=== PATIENT | male | born 1955 | race Caucasian/White ===

== ENCOUNTER 2019-06-02 07:39 | Inpatient (IN) ==
[2019-06-02] MEDS ORDERED: SODIUM CHLORIDE 0.9% 500 ML IV STA (08:00)
[2019-06-02] MEDS ORDERED: CEFTAROLINE 600 MG in SODIUM CHLORIDE 0.9% 100 ML IV STA (08:00)
[2019-06-02 08:39] LABS: Basophils % 0.5 % (0.0-0.8); Eosinophils # 0.2 10*3/uL (0.0-0.87); Eosinophils % 1.9 % (0.00-10.9); Immature Granulocytes % 2.5 %; Immature Granulocytes Absolute 0.21 #; Lymphocytes # 0.5 10*3/uL (1.4-4.0); Lymphocytes % 6.1 % (21.2-54.2); Mean Corpuscular HGB Conc 32.4 GM/DL (32-36); Mean Corpuscular Volume 98.4 FL (87-102); Mean Platelet Volume 9.1 FL (9.6-12.0); Monocytes % 13.5 % (1.7-12.7); Neutrophils % 75.5 % (38.7-73.9); Platelet Count 214 T/CUMM (130-400); Red Blood Count 3.76 MC/CUMM (3.8-5.5); White Blood Count 8.4 T/CUMM (4-12)
[2019-06-02 08:48] LABS: Calcium 8.8 MG/DL (8.5-10.1); Osmolality,Calculated 265.5 MOS/KG (273-304)
[2019-06-02 11:06] LABS: Sedimentation Rate-Westergren 69 MM/HR (0-20)
[2019-06-02] MEDS ORDERED: ONDANSETRON 4 MG/2 ML VIAL IV PRN (11:14)
[2019-06-02] MEDS ORDERED: ACETAMINOPHEN 325 MG TABLET PO PRN (11:14)
[2019-06-02] MEDS ORDERED: PIPERACILLIN/TAZOBACTAM 3,375 MG in SODIUM CHLORIDE 0.9% 100 ML IV SCH (11:30)
[2019-06-02 12:32] LABS: Risk Ratio 3.23; Thyroid Stimulating Hormone 1.18 uIU/ml (0.358-3.74); VLDL CHOLESTEROL 18.8 MG/DL
[2019-06-02] MEDS ORDERED: MAGNESIUM SULF RIDER 4 GM in PREMIX 1 EACH IV PRN (12:47)
[2019-06-02] MEDS ORDERED: MAGNESIUM SULF RIDER 2 GM in PREMIX 1 EACH IV PRN (12:47)
[2019-06-02] MEDS ORDERED: LIDOCAINE 1% 20 ML VIAL ONE (13:38)
[2019-06-02] MEDS ORDERED: BUPIVACAINE MPF 0.25% 30 ML VIAL ONE (13:38)
[2019-06-02] MEDS ORDERED: PROPOFOL 200 MG/20 ML VIAL IV ONE (14:19)
[2019-06-02] MEDS ORDERED: fentaNYL 100 MCG/2 ML VIAL ONE (14:20)
[2019-06-02] MEDS ORDERED: SEVOFLURANE 1 UNIT/15 MINUTE INH ONE (14:20)
[2019-06-02] MEDS ORDERED: MIDAZOLAM 2 MG/2 ML VIAL ONE (14:20)
[2019-06-02] MEDS ORDERED: ENOXAPARIN 40 MG/0.4 ML SYRINGE SUBCUT SCH (15:00)
[2019-06-02 16:43] LABS: Hematocrit 35.4 VOL% (42.0-52.0); Hemoglobin 11.3 GM/DL (14.0-18.0)
[2019-06-02] MEDS: SODIUM CHLORIDE 0.9% 1,000 ML IV SCH (17:25)
[2019-06-02] MEDS: CIPROFLOXACIN INJ 400 MG in PREMIX 1 EACH IV SCH (17:26)
[2019-06-02] MEDS: GABAPENTIN 300 MG CAPSULE PO SCH ×2 (17:54→22:21)
[2019-06-02] MEDS: VANCOMYCIN INJ 1,250 MG in SODIUM CHLORIDE 0.9% 250 ML IV SCH (17:54)
[2019-06-02 21:26] LABS: Apearance,Urine CLEAR (Clear); Bilirubin,Urine Negative (Negative); Blood, Urine Small mg/dL (Negative); Glucose,Urine (UA) Negative (Negative); Ketones,Urine Negative (Negative); Nitrite,Urine Negative (Negative); Protein,Urine Negative; RBC,Urine 1 /HPF (0-4); Urine Color Yellow (Yellow); Urine Specific Gravity 1.008 (1.001-1.035); WBC,Urine 1 /HPF (0-6)
[2019-06-02] MEDS: KETOROLAC 30 MG/1 ML VIAL IV PRN (22:22)
[2019-06-03] MEDS: VANCOMYCIN INJ 1,250 MG in SODIUM CHLORIDE 0.9% 250 ML IV SCH ×2 (04:11→15:26)
[2019-06-03] MEDS: SODIUM CHLORIDE 0.9% 1,000 ML IV SCH ×2 (04:26→12:23)
[2019-06-03 04:45] LABS: Basophils % 0.3 % (0.0-0.8); Eosinophils # 0.2 10*3/uL (0.0-0.87); Eosinophils % 4.7 % (0.00-10.9); Hematocrit 29.5 VOL% (42.0-52.0); Hemoglobin 9.3 GM/DL (14.0-18.0); Immature Granulocytes % 1.4 %; Immature Granulocytes Absolute 0.05 #; Lymphocytes # 0.4 10*3/uL (1.4-4.0); Lymphocytes % 10.5 % (21.2-54.2); Mean Corpuscular HGB Conc 31.5 GM/DL (32-36); Mean Platelet Volume 9.4 FL (9.6-12.0); Monocytes % 12.2 % (1.7-12.7); Neutrophils % 70.9 % (38.7-73.9); Platelet Count 120 T/CUMM (130-400); Red Blood Count 2.95 MC/CUMM (3.8-5.5); White Blood Count 3.6 T/CUMM (4-12)
[2019-06-03 05:04] LABS: Calcium 8.4 MG/DL (8.5-10.1); Osmolality,Calculated 276.4 MOS/KG (273-304)
[2019-06-03] MEDS: CIPROFLOXACIN INJ 400 MG in PREMIX 1 EACH IV SCH ×2 (05:40→17:16)
[2019-06-03] MEDS: GABAPENTIN 300 MG CAPSULE PO SCH ×3 (08:56→20:17)
[2019-06-03] MEDS: PANTOPRAZOLE 40 MG TABLET PO SCH (08:56)
[2019-06-03] MEDS: KETOROLAC 30 MG/1 ML VIAL IV PRN ×2 (12:20→18:12)
[2019-06-03] MEDS: traMADol 50 MG TABLET PO PRN (19:45)
[2019-06-04] MEDS: KETOROLAC 30 MG/1 ML VIAL IV PRN ×4 (00:02→21:18)
[2019-06-04] MEDS: SODIUM CHLORIDE 0.9% 1,000 ML IV SCH ×2 (00:04→13:53)
[2019-06-04] MEDS: traMADol 50 MG TABLET PO PRN ×4 (01:04→21:11)
[2019-06-04] MEDS: VANCOMYCIN INJ 1,250 MG in SODIUM CHLORIDE 0.9% 250 ML IV SCH ×2 (03:12→15:06)
[2019-06-04 04:24] LABS: Basophils % 0.4 % (0.0-0.8); Eosinophils # 0.1 10*3/uL (0.0-0.87); Eosinophils % 5.6 % (0.00-10.9); Hemoglobin 9.1 GM/DL (14.0-18.0); Immature Granulocytes % 0.8 %; Immature Granulocytes Absolute 0.02 #; Lymphocytes # 0.3 10*3/uL (1.4-4.0); Lymphocytes % 12.3 % (21.2-54.2); Mean Corpuscular HGB Conc 32.5 GM/DL (32-36); Mean Corpuscular Volume 100.4 FL (87-102); Mean Platelet Volume 9.4 FL (9.6-12.0); Monocytes % 12.3 % (1.7-12.7); Neutrophils % 68.6 % (38.7-73.9); Platelet Count 105 T/CUMM (130-400); Red Blood Count 2.79 MC/CUMM (3.8-5.5); White Blood Count 2.5 T/CUMM (4-12)
[2019-06-04 04:45] LABS: Calcium 8.4 MG/DL (8.5-10.1); Osmolality,Calculated 280.1 MOS/KG (273-304)
[2019-06-04] MEDS: CIPROFLOXACIN INJ 400 MG in PREMIX 1 EACH IV SCH ×2 (05:19→16:48)
[2019-06-04] MEDS: PANTOPRAZOLE 40 MG TABLET PO SCH (08:55)
[2019-06-04] MEDS: GABAPENTIN 300 MG CAPSULE PO SCH ×3 (08:55→21:12)
[2019-06-05] MEDS: SODIUM CHLORIDE 0.9% 1,000 ML IV SCH ×2 (01:09→12:17)
[2019-06-05] MEDS: KETOROLAC 30 MG/1 ML VIAL IV PRN (03:29)
[2019-06-05] MEDS: VANCOMYCIN INJ 1,250 MG in SODIUM CHLORIDE 0.9% 250 ML IV SCH (03:29)
[2019-06-05 04:50] LABS: Basophils % 0.3 % (0.0-0.8); Eosinophils # 0.1 10*3/uL (0.0-0.87); Eosinophils % 2.9 % (0.00-10.9); Hematocrit 29.9 VOL% (42.0-52.0); Hemoglobin 9.3 GM/DL (14.0-18.0); Immature Granulocytes % 1.3 %; Immature Granulocytes Absolute 0.04 #; Lymphocytes # 0.3 10*3/uL (1.4-4.0); Lymphocytes % 8.9 % (21.2-54.2); Mean Corpuscular HGB Conc 31.1 GM/DL (32-36); Mean Corpuscular Volume 103.1 FL (87-102); Mean Platelet Volume 9.6 FL (9.6-12.0); Neutrophils % 79.6 % (38.7-73.9); Platelet Count 112 T/CUMM (130-400); Red Cell Distribution Width 13.2 % (9.3-17.3); White Blood Count 3.1 T/CUMM (4-12)
[2019-06-05 05:19] LABS: Calcium 8.4 MG/DL (8.5-10.1); Osmolality,Calculated 278.3 MOS/KG (273-304)
[2019-06-05] MEDS: CIPROFLOXACIN INJ 400 MG in PREMIX 1 EACH IV SCH (05:37)
[2019-06-05] MEDS ORDERED: LEVOFLOXACIN 750 MG TABLET PO SCH (07:00)
[2019-06-05] MEDS: PANTOPRAZOLE 40 MG TABLET PO SCH (08:27)
[2019-06-05] MEDS: GABAPENTIN 300 MG CAPSULE PO SCH (08:27)
[2019-06-05 11:21] VITALS: BP 115/62
== END 2019-06-05 14:55 | disposition home health service (06) | DRG 305 ==
LOC: N.ED 07:39 → SUATTDRO 11:15 → N.EDINP 11:15 → N.3E 12:55
PROVIDERS: ADMIT Emergency Medicine; ATTEND Family Medicine

== ENCOUNTER 2019-06-15 14:30 | Inpatient (IN) ==
[~2019-06-15 14:30] MED LIST: ACETAMINOPHEN 325 MG TABLET PO PRN; ALBUTEROL/IPRATROPIUM 3 ML NEB RESP TX PRN; BISACODYL 5 MG TABLET PO PRN; ONDANSETRON 4 MG/2 ML VIAL IV PRN
[2019-06-16] MEDS: PIPERACILLIN/TAZOBACTAM 3,375 MG in SODIUM CHLORIDE 0.9% 100 ML IV SCH ×4 (10:15→21:16)
[2019-06-16] MEDS: LACTATED RINGERS 1,000 ML IV SCH ×3 (10:15→21:50)
[2019-06-16] MEDS: PANTOPRAZOLE 40 MG TABLET PO SCH ×2 (10:16→10:54)
[2019-06-16] MEDS: traMADol 50 MG TABLET PO SCH ×2 (14:01→21:15)
[2019-06-16] MEDS: GABAPENTIN 300 MG CAPSULE PO SCH ×2 (14:01→21:15)
[2019-06-16] MEDS: VANCOMYCIN INJ 1,500 MG in SODIUM CHLORIDE 0.9% 500 ML IV SCH (15:51)
[2019-06-17] MEDS: VANCOMYCIN INJ 1,500 MG in SODIUM CHLORIDE 0.9% 500 ML IV SCH ×2 (03:47→14:50)
[2019-06-17] MEDS: traMADol 50 MG TABLET PO SCH ×3 (05:56→21:44)
[2019-06-17] MEDS: METHADONE PO SCH (05:56)
[2019-06-17] MEDS: PIPERACILLIN/TAZOBACTAM 3,375 MG in SODIUM CHLORIDE 0.9% 100 ML IV SCH ×2 (09:04→17:14)
[2019-06-17] MEDS: SODIUM HYPOCHLORITE 0.25% IRRIG 473 ML BOTTLE TOP SCH (09:04)
[2019-06-17] MEDS: CHLORHEXIDINE 4% SOLN 118 ML BOTTLE TOP SCH (09:05)
[2019-06-17] MEDS: GABAPENTIN 300 MG CAPSULE PO SCH ×3 (09:07→21:44)
[2019-06-17] MEDS: PANTOPRAZOLE 40 MG TABLET PO SCH (09:07)
[2019-06-17] MEDS: LACTATED RINGERS 1,000 ML IV SCH (21:21)
[2019-06-18] MEDS: PIPERACILLIN/TAZOBACTAM 3,375 MG in SODIUM CHLORIDE 0.9% 100 ML IV SCH ×3 (01:33→19:05)
[2019-06-18] MEDS: METHADONE PO SCH (05:17)
[2019-06-18] MEDS: traMADol 50 MG TABLET PO SCH ×3 (05:17→22:26)
[2019-06-18] MEDS: VANCOMYCIN INJ 1,500 MG in SODIUM CHLORIDE 0.9% 500 ML IV SCH ×2 (06:08→17:13)
[2019-06-18] MEDS: SODIUM HYPOCHLORITE 0.25% IRRIG 473 ML BOTTLE TOP SCH (09:36)
[2019-06-18] MEDS: PANTOPRAZOLE 40 MG TABLET PO SCH (09:36)
[2019-06-18] MEDS: GABAPENTIN 300 MG CAPSULE PO SCH ×3 (09:36→22:26)
[2019-06-18] MEDS: CHLORHEXIDINE 4% SOLN 118 ML BOTTLE TOP SCH (09:37)
[2019-06-19] MEDS: PIPERACILLIN/TAZOBACTAM 3,375 MG in SODIUM CHLORIDE 0.9% 100 ML IV SCH ×2 (01:52→11:22)
[2019-06-19] MEDS: traMADol 50 MG TABLET PO SCH ×2 (05:19→14:13)
[2019-06-19] MEDS: METHADONE PO SCH (05:19)
[2019-06-19] MEDS: VANCOMYCIN INJ 1,500 MG in SODIUM CHLORIDE 0.9% 500 ML IV SCH (06:50)
[2019-06-19] MEDS: PANTOPRAZOLE 40 MG TABLET PO SCH (09:47)
[2019-06-19] MEDS: GABAPENTIN 300 MG CAPSULE PO SCH ×2 (09:47→15:06)
[2019-06-19] MEDS: SODIUM HYPOCHLORITE 0.25% IRRIG 473 ML BOTTLE TOP SCH (10:55)
[2019-06-19] MEDS: CHLORHEXIDINE 4% SOLN 118 ML BOTTLE TOP SCH (10:55)
[2019-06-19 11:32] VITALS: BP 115/82
== END 2019-06-19 15:39 | disposition home health service (06) | DRG 383 ==
LOC: N.EDINP 06-16 08:38 → N.3E 06-16 09:15
PROVIDERS: ADMIT Surgery; ATTEND Surgery

== ENCOUNTER 2019-06-26 15:26 | Inpatient (IN) ==
[2019-06-26 17:17] LABS: Basophils % 0.2 % (0.0-0.8); Eosinophils # 0.1 10*3/uL (0.0-0.87); Eosinophils % 1.4 % (0.00-10.9); Hematocrit 30.7 VOL% (42.0-52.0); Hemoglobin 9.6 GM/DL (14.0-18.0); Immature Granulocytes % 0.8 %; Immature Granulocytes Absolute 0.04 #; Lymphocytes # 0.2 10*3/uL (1.4-4.0); Lymphocytes % 3.9 % (21.2-54.2); Mean Corpuscular HGB Conc 31.3 GM/DL (32-36); Mean Corpuscular Volume 99.7 FL (87-102); Mean Platelet Volume 10.6 FL (9.6-12.0); Neutrophils % 84.7 % (38.7-73.9); Platelet Count 124 T/CUMM (130-400); Red Blood Count 3.08 MC/CUMM (3.8-5.5); Red Cell Distribution Width 13.8 % (9.3-17.3); White Blood Count 5.1 T/CUMM (4-12)
[2019-06-26 17:24] LABS: Apearance,Urine CLEAR (Clear); Bilirubin,Urine Negative (Negative); Blood, Urine Negative (Negative); Glucose,Urine (UA) Negative (Negative); Ketones,Urine Negative (Negative); Nitrite,Urine Negative (Negative); Protein,Urine Negative; Squamous Epithelial Cell,Urine Occasional /HPF (0-10); Urine Color Straw (Yellow); Urine Specific Gravity 1.003 (1.001-1.035); Urine Urobilinogen < 2.0 EU/DL (0.2-1.0)
[2019-06-26 17:27] LABS: Albumin 2.4 G/DL (3.4-5.0); Bilirubin,Total 0.6 MG/DL (0.2-1.0); Calcium 8.4 MG/DL (8.5-10.1); Osmolality,Calculated 276.4 MOS/KG (273-304); Thyroid Stimulating Hormone 2.99 uIU/ml (0.358-3.74); Total Protein 7.3 G/DL (6.4-8.3)
[2019-06-26 17:29] LABS: Barbiturates Screen,Urine Negative (Negative); Benzodiazepines Screen,Urine Negative (Negative); Cannabinoid Screen,Urine Negative (Negative); INR 1.1; Opiate Screen,Urine Negative (Negative); PT Patient Result 11.7 SECS; Phencyclidine Screen,Urine Negative (Negative)
[2019-06-26] MEDS ORDERED: MAGNESIUM SULF RIDER 2 GM in PREMIX 1 EACH IV STA (17:33)
[2019-06-26] MEDS ORDERED: MAGNESIUM SULF RIDER 50 ML IV ONE (17:33)
[2019-06-26 17:39] LABS: Eosinophils 1 % (0-10); Lymphocytes 4 % (20-55); Platelet Estimate Adequate; Segmented Neutrophils 86 % (50-85); Total Cells Counted 100
[2019-06-26 17:40] LABS: Hypochromasia Slight; Polychromasia Few
[2019-06-26] MEDS ORDERED: DOCUSATE SODIUM 100 MG CAPSULE PO PRN (17:44)
[2019-06-26] MEDS ORDERED: ONDANSETRON 4 MG/2 ML VIAL IV PRN (17:44)
[2019-06-26] MEDS ORDERED: POTASSIUM CHLORIDE 20 MEQ TABLET PO ONE (18:48)
[2019-06-26] MEDS: METOPROLOL TARTRATE 25 MG TABLET PO SCH ×2 (18:55→21:28)
[2019-06-26] MEDS: SODIUM CHLORIDE 0.9% 1,000 ML IV SCH (18:56)
[2019-06-26] MEDS: KETOROLAC 15 MG/1 ML VIAL IV PRN (21:14)
[2019-06-26] MEDS: ENOXAPARIN 40 MG/0.4 ML SYRINGE SUBCUT SCH (21:28)
[2019-06-27] MEDS ORDERED: PNEUMOCOCCAL VACCINE (23 VALENT) 0.5 ML VIAL IM ONE (00:15)
[2019-06-27 00:46] LABS: Basophils % 0.4 % (0.0-0.8); Eosinophils # 0.1 10*3/uL (0.0-0.87); Hematocrit 33.4 VOL% (42.0-52.0); Hemoglobin 10.3 GM/DL (14.0-18.0); Immature Granulocytes % 1.3 %; Immature Granulocytes Absolute 0.06 #; Lymphocytes # 0.3 10*3/uL (1.4-4.0); Lymphocytes % 6.9 % (21.2-54.2); Mean Corpuscular HGB Conc 30.8 GM/DL (32-36); Mean Corpuscular Volume 100.3 FL (87-102); Mean Platelet Volume 9.4 FL (9.6-12.0); Monocytes % 9.4 % (1.7-12.7); Platelet Count 162 T/CUMM (130-400); Red Blood Count 3.33 MC/CUMM (3.8-5.5); Red Cell Distribution Width 13.7 % (9.3-17.3); White Blood Count 4.5 T/CUMM (4-12)
[2019-06-27 01:20] LABS: Albumin 2.5 G/DL (3.4-5.0); Bilirubin,Total 0.6 MG/DL (0.2-1.0); Calcium 8.2 MG/DL (8.5-10.1); Osmolality,Calculated 277.3 MOS/KG (273-304); Risk Ratio 3.15; Total Protein 7.6 G/DL (6.4-8.3)
[2019-06-27] MEDS: KETOROLAC 15 MG/1 ML VIAL IV PRN ×4 (04:06→23:56)
[2019-06-27] MEDS: METOPROLOL TARTRATE 25 MG TABLET PO SCH ×2 (09:09→22:45)
[2019-06-27] MEDS: PANTOPRAZOLE 40 MG TABLET PO SCH (09:09)
[2019-06-27] MEDS ORDERED: ASPIRIN 325 MG TABLET PO ONE (10:03)
[2019-06-27] MEDS ORDERED: POTASSIUM CHLORIDE RIDER 10 MEQ in PREMIX 1 EACH IV PRN (10:03)
[2019-06-27] MEDS ORDERED: diphenhydrAMINE CAP 25 MG CAPSULE PO ONE (10:03)
[2019-06-27] MEDS ORDERED: DIAZEPAM 5 MG TABLET PO ONE (10:03)
[2019-06-27 10:35] LABS: % Iron Saturation 14.4 % (18-50); Ferritin 42.6 ng/ml (26-388)
[2019-06-27] MEDS: GABAPENTIN 300 MG CAPSULE PO SCH ×2 (14:42→22:44)
[2019-06-27] MEDS: SODIUM CHLORIDE 0.9% 1,000 ML IV SCH (14:43)
[2019-06-27] MEDS: ENOXAPARIN 40 MG/0.4 ML SYRINGE SUBCUT SCH (22:45)
[2019-06-28 05:57] LABS: Basophils % 0.3 % (0.0-0.8); Eosinophils # 0.2 10*3/uL (0.0-0.87); Eosinophils % 5.3 % (0.00-10.9); Hematocrit 32.4 VOL% (42.0-52.0); Hemoglobin 10.1 GM/DL (14.0-18.0); Immature Granulocytes % 0.7 %; Immature Granulocytes Absolute 0.02 #; Lymphocytes # 0.3 10*3/uL (1.4-4.0); Lymphocytes % 11.3 % (21.2-54.2); Mean Corpuscular HGB Conc 31.2 GM/DL (32-36); Mean Corpuscular Volume 100.3 FL (87-102); Mean Platelet Volume 10.1 FL (9.6-12.0); Monocytes % 14.6 % (1.7-12.7); Neutrophils % 67.8 % (38.7-73.9); Red Blood Count 3.23 MC/CUMM (3.8-5.5); Red Cell Distribution Width 13.9 % (9.3-17.3)
[2019-06-28 05:58] LABS: Platelet Count 116 T/CUMM (130-400)
[2019-06-28 06:02] LABS: Calcium 8.5 MG/DL (8.5-10.1); Osmolality,Calculated 276.3 MOS/KG (273-304)
[2019-06-28] MEDS ORDERED: METHADONE PO SCH (07:30)
[2019-06-28] MEDS ORDERED: DIAZEPAM 5 MG TABLET PO ONE (08:00)
[2019-06-28] MEDS ORDERED: diphenhydrAMINE CAP 25 MG CAPSULE PO ONE (08:00)
[2019-06-28] MEDS ORDERED: ASPIRIN 325 MG TABLET PO ONE (09:00)
[2019-06-28] MEDS: SODIUM CHLORIDE 0.9% 1,000 ML IV SCH (09:49)
[2019-06-28] MEDS: VANCOMYCIN INJ 1,500 MG in SODIUM CHLORIDE 0.9% 500 ML IV SCH ×2 (09:51→21:00)
[2019-06-28] MEDS: KETOROLAC 15 MG/1 ML VIAL IV PRN ×2 (09:53→18:33)
[2019-06-28] MEDS: METOPROLOL TARTRATE 25 MG TABLET PO SCH ×2 (09:54→20:41)
[2019-06-28] MEDS: PANTOPRAZOLE 40 MG TABLET PO SCH (09:54)
[2019-06-28] MEDS: GABAPENTIN 300 MG CAPSULE PO SCH ×3 (09:54→20:41)
[2019-06-28] MEDS: ASPIRIN EC 81 MG TABLET PO SCH (10:59)
[2019-06-28] MEDS: ASCORBIC ACID 500 MG TABLET PO SCH ×2 (10:59→20:41)
[2019-06-28] MEDS: METHADONE 10 MG TABLET PO SCH (14:22)
[2019-06-28] MEDS: SKIN HEALING OINT (AQUAPHOR) 50 GM TUBE TOP PRN (15:03)
[2019-06-28] MEDS: ENOXAPARIN 40 MG/0.4 ML SYRINGE SUBCUT SCH (20:40)
[2019-06-29] MEDS: KETOROLAC 15 MG/1 ML VIAL IV PRN ×3 (00:22→12:15)
[2019-06-29 06:10] LABS: Basophils % 0.3 % (0.0-0.8); Eosinophils # 0.1 10*3/uL (0.0-0.87); Eosinophils % 3.2 % (0.00-10.9); Hematocrit 33.1 VOL% (42.0-52.0); Hemoglobin 10.4 GM/DL (14.0-18.0); Immature Granulocytes % 0.5 %; Immature Granulocytes Absolute 0.02 #; Lymphocytes # 0.4 10*3/uL (1.4-4.0); Lymphocytes % 9.3 % (21.2-54.2); Mean Corpuscular HGB Conc 31.4 GM/DL (32-36); Mean Corpuscular Volume 99.1 FL (87-102); Mean Platelet Volume 9.6 FL (9.6-12.0); Monocytes % 11.7 % (1.7-12.7); Platelet Count 111 T/CUMM (130-400); Red Blood Count 3.34 MC/CUMM (3.8-5.5); Red Cell Distribution Width 13.8 % (9.3-17.3); White Blood Count 3.8 T/CUMM (4-12)
[2019-06-29 06:23] LABS: Calcium 8.7 MG/DL (8.5-10.1); Osmolality,Calculated 273.5 MOS/KG (273-304)
[2019-06-29] MEDS ORDERED: LACTATED RINGERS 1,000 ML IV SCH (08:00)
[2019-06-29] MEDS ORDERED: MAGNESIUM SULF RIDER 4 GM in PREMIX 1 EACH IV PRN (08:29)
[2019-06-29] MEDS ORDERED: diphenhydrAMINE CAP 25 MG CAPSULE PO ONE ×2 (08:37→15:00)
[2019-06-29] MEDS ORDERED: DIAZEPAM 5 MG TABLET PO ONE ×2 (08:37→15:00)
[2019-06-29] MEDS: CHLORHEXIDINE 4% SOLN 118 ML BOTTLE TOP SCH (09:00)
[2019-06-29] MEDS ORDERED: SODIUM HYPOCHLORITE 0.25% IRRIG 473 ML BOTTLE TOP SCH (09:00)
[2019-06-29] MEDS: ASPIRIN EC 81 MG TABLET PO SCH (09:09)
[2019-06-29] MEDS: METOPROLOL TARTRATE 25 MG TABLET PO SCH ×2 (09:09→22:00)
[2019-06-29] MEDS: SKIN HEALING OINT (AQUAPHOR) 50 GM TUBE TOP PRN (09:11)
[2019-06-29] MEDS: SODIUM HYPOCHLORITE 0.25% IRRIG 473 ML BOTTLE TOP SCH (09:11)
[2019-06-29] MEDS: VANCOMYCIN INJ 1,500 MG in SODIUM CHLORIDE 0.9% 500 ML IV SCH (10:18)
[2019-06-29] MEDS ORDERED: LIDOCAINE 1% 20 ML VIAL ONE (14:40)
[2019-06-29] MEDS ORDERED: HEPARIN/NACL 0.9% 2 UNITS/ML 1,000 ML IV ONE (14:40)
[2019-06-29] MEDS ORDERED: MIDAZOLAM 2 MG/2 ML VIAL ONE (15:11)
[2019-06-29] MEDS ORDERED: fentaNYL 100 MCG/2 ML VIAL ONE (15:11)
[2019-06-29] MEDS ORDERED: SODIUM BICARBONATE 2.4 MEQ/5 ML VIAL ONE (15:12)
[2019-06-29] MEDS: ASCORBIC ACID 500 MG TABLET PO SCH ×2 (15:22→22:00)
[2019-06-29] MEDS: GABAPENTIN 300 MG CAPSULE PO SCH ×3 (15:22→22:00)
[2019-06-29] MEDS: METHADONE 10 MG TABLET PO SCH (15:22)
[2019-06-29] MEDS: PANTOPRAZOLE 40 MG TABLET PO SCH (15:23)
[2019-06-29] MEDS ORDERED: diphenhydrAMINE 50 MG/1 ML VIAL ONE (15:29)
[2019-06-29] MEDS ORDERED: METHADONE 10 MG TABLET PO SCH ×2 (16:21→17:00)
[2019-06-29] MEDS: SODIUM CHLORIDE 0.9% 1,000 ML IV SCH (16:33)
[2019-06-29 18:27] LABS: Calcium 8.4 MG/DL (8.5-10.1); Osmolality,Calculated 274.4 MOS/KG (273-304)
[2019-06-29] MEDS ORDERED: MAGNESIUM SULF RIDER 2 GM in PREMIX 1 EACH IV ONE (19:54)
[2019-06-29] MEDS: POTASSIUM CHLORIDE RIDER 10 MEQ in PREMIX 1 EACH IV PRN ×2 (20:35→22:25)
[2019-06-29] MEDS: ENOXAPARIN 40 MG/0.4 ML SYRINGE SUBCUT SCH (22:00)
[2019-06-29] MEDS: POTASSIUM CHLORIDE RIDER 10 MEQ in PREMIX 1 EACH IV SCH (23:55)
[2019-06-30] MEDS: POTASSIUM CHLORIDE RIDER 10 MEQ in PREMIX 1 EACH IV SCH (01:50)
[2019-06-30] MEDS: VANCOMYCIN INJ 1,500 MG in SODIUM CHLORIDE 0.9% 500 ML IV SCH ×2 (01:52→12:28)
[2019-06-30] MEDS: SODIUM CHLORIDE 0.9% 1,000 ML IV SCH ×2 (04:11→23:35)
[2019-06-30 06:39] LABS: Basophils % 0.4 % (0.0-0.8); Eosinophils % 0.6 % (0.00-10.9); Hematocrit 32.4 VOL% (42.0-52.0); Hemoglobin 10.7 GM/DL (14.0-18.0); Immature Granulocytes % 1.2 %; Immature Granulocytes Absolute 0.06 #; Lymphocytes # 0.4 10*3/uL (1.4-4.0); Lymphocytes % 7.9 % (21.2-54.2); Mean Corpuscular Volume 94.5 FL (87-102); Mean Platelet Volume 11.3 FL (9.6-12.0); Neutrophils % 76.9 % (38.7-73.9); Platelet Count 96 T/CUMM (130-400); Red Blood Count 3.43 MC/CUMM (3.8-5.5); Red Cell Distribution Width 13.6 % (9.3-17.3); White Blood Count 5.1 T/CUMM (4-12)
[2019-06-30 06:45] LABS: Calcium 8.3 MG/DL (8.5-10.1); Osmolality,Calculated 272.5 MOS/KG (273-304)
[2019-06-30] MEDS ORDERED: POTASSIUM CHLORIDE 20 MEQ TABLET PO ONE (07:11)
[2019-06-30 07:12] LABS: Hypochromasia 1+; Platelet Estimate Decreased
[2019-06-30] MEDS ORDERED: MAGNESIUM SULF RIDER 2 GM in PREMIX 1 EACH IV ONE ×2 (07:14→20:19)
[2019-06-30] MEDS: METOPROLOL TARTRATE 25 MG TABLET PO SCH (08:30)
[2019-06-30] MEDS: GABAPENTIN 300 MG CAPSULE PO SCH ×3 (08:30→20:46)
[2019-06-30] MEDS: ASCORBIC ACID 500 MG TABLET PO SCH ×2 (08:30→20:46)
[2019-06-30] MEDS: ASPIRIN EC 81 MG TABLET PO SCH (08:30)
[2019-06-30] MEDS: PANTOPRAZOLE 40 MG TABLET PO SCH (08:31)
[2019-06-30] MEDS: KETOROLAC 15 MG/1 ML VIAL IV PRN ×2 (09:49→18:21)
[2019-06-30] MEDS: CHLORHEXIDINE 4% SOLN 118 ML BOTTLE TOP SCH (09:50)
[2019-06-30] MEDS: SODIUM HYPOCHLORITE 0.25% IRRIG 473 ML BOTTLE TOP SCH (09:50)
[2019-06-30] MEDS: fentaNYL 25 MCG/HR PATCH TRANSDERM SCH (14:26)
[2019-06-30] MEDS: ceFAZolin 1,000 MG in SYRINGE 1 EACH IV SCH ×2 (14:29→22:54)
[2019-06-30] MEDS ORDERED: cloNIDine 0.3 MG/24 HR PATCH TRANSDERM SCH (14:30)
[2019-06-30] MEDS ORDERED: METHADONE 10 MG/1 ML PO SCH (17:00)
[2019-06-30] MEDS: ENOXAPARIN 40 MG/0.4 ML SYRINGE SUBCUT SCH (20:45)
[2019-06-30] MEDS ORDERED: METHADONE 10 MG TABLET PO SCH (21:00)
[2019-06-30] MEDS ORDERED: AMIODARONE INJ 150 MG in DEXTROSE 5% 100 ML IV ONE (22:39)
[2019-07-01] MEDS: KETOROLAC 15 MG/1 ML VIAL IV PRN ×4 (00:04→19:20)
[2019-07-01 05:06] LABS: Basophils % 0.4 % (0.0-0.8); Eosinophils # 0.2 10*3/uL (0.0-0.87); Eosinophils % 6.4 % (0.00-10.9); Hematocrit 32.7 VOL% (42.0-52.0); Hemoglobin 10.3 GM/DL (14.0-18.0); Immature Granulocytes % 0.7 %; Immature Granulocytes Absolute 0.02 #; Lymphocytes # 0.4 10*3/uL (1.4-4.0); Lymphocytes % 12.5 % (21.2-54.2); Mean Corpuscular HGB Conc 31.5 GM/DL (32-36); Mean Corpuscular Volume 97.6 FL (87-102); Mean Platelet Volume 9.9 FL (9.6-12.0); Platelet Count 119 T/CUMM (130-400); Red Blood Count 3.35 MC/CUMM (3.8-5.5); Red Cell Distribution Width 13.8 % (9.3-17.3); White Blood Count 2.8 T/CUMM (4-12)
[2019-07-01 05:42] LABS: Calcium 8.5 MG/DL (8.5-10.1); Osmolality,Calculated 280.3 MOS/KG (273-304)
[2019-07-01] MEDS: ceFAZolin 1,000 MG in SYRINGE 1 EACH IV SCH ×3 (05:56→22:43)
[2019-07-01] MEDS: POTASSIUM CHLORIDE RIDER 10 MEQ in PREMIX 1 EACH IV PRN (05:57)
[2019-07-01 06:26] LABS: Anisocytosis 1+; Band Neutrophils 1 % (0-10); Eosinophils 6 % (0-10); Lymphocytes 12 % (20-55); Platelet Estimate Adequate; Segmented Neutrophils 66 % (50-85); Total Cells Counted 100
[2019-07-01] MEDS: METHADONE 10 MG TABLET PO SCH ×2 (10:07→20:40)
[2019-07-01] MEDS: MORPHINE ER 15 MG TABLET PO SCH ×2 (10:08→20:40)
[2019-07-01] MEDS: ASCORBIC ACID 500 MG TABLET PO SCH ×2 (10:09→20:40)
[2019-07-01] MEDS: POTASSIUM CHLORIDE 20 MEQ TABLET PO PRN ×2 (10:09→15:10)
[2019-07-01] MEDS: PANTOPRAZOLE 40 MG TABLET PO SCH (10:09)
[2019-07-01] MEDS: ASPIRIN EC 81 MG TABLET PO SCH (10:09)
[2019-07-01] MEDS: GABAPENTIN 300 MG CAPSULE PO SCH ×3 (10:09→20:40)
[2019-07-01] MEDS: POTASSIUM CHLORIDE 20 MEQ TABLET PO SCH ×2 (13:03→20:41)
[2019-07-01] MEDS: MAGNESIUM CHLORIDE 64 MG TABLET PO SCH ×2 (13:03→20:40)
[2019-07-01] MEDS: SODIUM HYPOCHLORITE 0.25% IRRIG 473 ML BOTTLE TOP SCH (16:32)
[2019-07-01] MEDS: CHLORHEXIDINE 4% SOLN 118 ML BOTTLE TOP SCH (16:33)
[2019-07-01] MEDS: ENOXAPARIN 40 MG/0.4 ML SYRINGE SUBCUT SCH (20:41)
[2019-07-01] MEDS: SODIUM CHLORIDE 0.9% 1,000 ML IV SCH (22:47)
[2019-07-02] MEDS: KETOROLAC 15 MG/1 ML VIAL IV PRN ×4 (02:48→23:54)
[2019-07-02] MEDS: SODIUM CHLORIDE 0.9% 1,000 ML IV SCH ×2 (05:15→19:20)
[2019-07-02 05:34] LABS: Basophils % 0.8 % (0.0-0.8); Eosinophils # 0.1 10*3/uL (0.0-0.87); Eosinophils % 5.3 % (0.00-10.9); Hematocrit 30.1 VOL% (42.0-52.0); Hemoglobin 9.5 GM/DL (14.0-18.0); Immature Granulocytes % 0.4 %; Immature Granulocytes Absolute 0.01 #; Lymphocytes # 0.2 10*3/uL (1.4-4.0); Mean Corpuscular HGB Conc 31.6 GM/DL (32-36); Mean Platelet Volume 10.5 FL (9.6-12.0); Monocytes % 14.8 % (1.7-12.7); Neutrophils % 70.7 % (38.7-73.9); Platelet Count 98 T/CUMM (130-400); Red Blood Count 3.07 MC/CUMM (3.8-5.5); Red Cell Distribution Width 13.6 % (9.3-17.3); White Blood Count 2.6 T/CUMM (4-12)
[2019-07-02 05:57] LABS: Calcium 8.6 MG/DL (8.5-10.1); Osmolality,Calculated 279.3 MOS/KG (273-304)
[2019-07-02] MEDS: MAGNESIUM SULF RIDER 2 GM in PREMIX 1 EACH IV PRN (06:11)
[2019-07-02] MEDS: ceFAZolin 1,000 MG in SYRINGE 1 EACH IV SCH ×3 (06:11→22:10)
[2019-07-02 06:35] LABS: Platelet Estimate Adequate
[2019-07-02] MEDS: PANTOPRAZOLE 40 MG TABLET PO SCH (09:17)
[2019-07-02] MEDS: MAGNESIUM CHLORIDE 64 MG TABLET PO SCH ×2 (09:17→20:12)
[2019-07-02] MEDS: GABAPENTIN 300 MG CAPSULE PO SCH ×3 (09:17→20:12)
[2019-07-02] MEDS: MORPHINE ER 15 MG TABLET PO SCH ×2 (09:18→20:11)
[2019-07-02] MEDS: ASPIRIN EC 81 MG TABLET PO SCH (09:18)
[2019-07-02] MEDS: METHADONE 10 MG TABLET PO SCH ×2 (09:36→20:12)
[2019-07-02] MEDS: ASCORBIC ACID 500 MG TABLET PO SCH ×2 (10:57→20:12)
[2019-07-02] MEDS: POTASSIUM CHLORIDE 20 MEQ TABLET PO SCH ×2 (10:57→20:12)
[2019-07-02] MEDS: SODIUM HYPOCHLORITE 0.25% IRRIG 473 ML BOTTLE TOP SCH (10:58)
[2019-07-02] MEDS: CHLORHEXIDINE 4% SOLN 118 ML BOTTLE TOP SCH (10:58)
[2019-07-02] MEDS: ENOXAPARIN 40 MG/0.4 ML SYRINGE SUBCUT SCH (20:11)
[2019-07-03] MEDS: SODIUM CHLORIDE 0.9% 1,000 ML IV SCH ×2 (05:14→12:58)
[2019-07-03 05:45] LABS: Basophils % 0.5 % (0.0-0.8); Eosinophils # 0.1 10*3/uL (0.0-0.87); Eosinophils % 5.9 % (0.00-10.9); Hematocrit 30.9 VOL% (42.0-52.0); Hemoglobin 9.7 GM/DL (14.0-18.0); Immature Granulocytes % 0.5 %; Immature Granulocytes Absolute 0.01 #; Lymphocytes # 0.3 10*3/uL (1.4-4.0); Lymphocytes % 14.5 % (21.2-54.2); Mean Corpuscular HGB Conc 31.4 GM/DL (32-36); Mean Corpuscular Volume 98.1 FL (87-102); Mean Platelet Volume 10.1 FL (9.6-12.0); Monocytes % 13.2 % (1.7-12.7); Neutrophils % 65.4 % (38.7-73.9); Platelet Count 116 T/CUMM (130-400); Red Blood Count 3.15 MC/CUMM (3.8-5.5); Red Cell Distribution Width 13.7 % (9.3-17.3); White Blood Count 2.2 T/CUMM (4-12)
[2019-07-03] MEDS: ceFAZolin 1,000 MG in SYRINGE 1 EACH IV SCH ×3 (05:49→23:16)
[2019-07-03] MEDS: KETOROLAC 15 MG/1 ML VIAL IV PRN (05:50)
[2019-07-03 05:57] LABS: Calcium 8.5 MG/DL (8.5-10.1); Osmolality,Calculated 280.1 MOS/KG (273-304)
[2019-07-03] MEDS: MAGNESIUM SULF RIDER 2 GM in PREMIX 1 EACH IV PRN (06:11)
[2019-07-03] MEDS: GABAPENTIN 300 MG CAPSULE PO SCH ×3 (09:03→20:39)
[2019-07-03] MEDS: MAGNESIUM CHLORIDE 64 MG TABLET PO SCH ×2 (09:03→20:39)
[2019-07-03] MEDS: METHADONE 10 MG TABLET PO SCH ×2 (09:03→20:39)
[2019-07-03] MEDS: ASCORBIC ACID 500 MG TABLET PO SCH ×2 (09:03→20:39)
[2019-07-03] MEDS: POTASSIUM CHLORIDE 20 MEQ TABLET PO SCH ×2 (09:03→20:40)
[2019-07-03] MEDS: ASPIRIN EC 81 MG TABLET PO SCH (09:03)
[2019-07-03] MEDS: fentaNYL 25 MCG/HR PATCH TRANSDERM SCH (09:04)
[2019-07-03] MEDS: SODIUM HYPOCHLORITE 0.25% IRRIG 473 ML BOTTLE TOP SCH (09:04)
[2019-07-03] MEDS: PANTOPRAZOLE 40 MG TABLET PO SCH (09:04)
[2019-07-03] MEDS: CHLORHEXIDINE 4% SOLN 118 ML BOTTLE TOP SCH (09:04)
[2019-07-03] MEDS: MORPHINE ER 15 MG TABLET PO SCH ×2 (09:04→20:39)
[2019-07-03] MEDS: ENOXAPARIN 40 MG/0.4 ML SYRINGE SUBCUT SCH (20:40)
[2019-07-04] MEDS: SODIUM CHLORIDE 0.9% 1,000 ML IV SCH ×2 (00:46→06:11)
[2019-07-04] MEDS: KETOROLAC 15 MG/1 ML VIAL IV PRN ×3 (02:47→20:36)
[2019-07-04 04:52] LABS: Basophils % 0.4 % (0.0-0.8); Eosinophils # 0.1 10*3/uL (0.0-0.87); Eosinophils % 5.4 % (0.00-10.9); Hemoglobin 9.2 GM/DL (14.0-18.0); Immature Granulocytes % 0.8 %; Immature Granulocytes Absolute 0.02 #; Lymphocytes # 0.3 10*3/uL (1.4-4.0); Lymphocytes % 10.3 % (21.2-54.2); Mean Corpuscular HGB Conc 31.7 GM/DL (32-36); Mean Platelet Volume 10.5 FL (9.6-12.0); Monocytes % 13.2 % (1.7-12.7); Neutrophils % 69.9 % (38.7-73.9); Platelet Count 105 T/CUMM (130-400); Red Blood Count 2.96 MC/CUMM (3.8-5.5); Red Cell Distribution Width 13.7 % (9.3-17.3); White Blood Count 2.4 T/CUMM (4-12)
[2019-07-04 05:14] LABS: Calcium 8.8 MG/DL (8.5-10.1); Osmolality,Calculated 277.4 MOS/KG (273-304)
[2019-07-04] MEDS: MAGNESIUM SULF RIDER 2 GM in PREMIX 1 EACH IV PRN (06:11)
[2019-07-04] MEDS: ceFAZolin 1,000 MG in SYRINGE 1 EACH IV SCH ×3 (06:11→22:43)
[2019-07-04] MEDS: ASPIRIN EC 81 MG TABLET PO SCH (08:58)
[2019-07-04] MEDS: POTASSIUM CHLORIDE 20 MEQ TABLET PO SCH ×2 (08:58→20:35)
[2019-07-04] MEDS: CHLORHEXIDINE 4% SOLN 118 ML BOTTLE TOP SCH (08:58)
[2019-07-04] MEDS: METHADONE 10 MG TABLET PO SCH ×2 (08:58→20:34)
[2019-07-04] MEDS: MORPHINE ER 15 MG TABLET PO SCH ×2 (08:58→20:35)
[2019-07-04] MEDS: SODIUM HYPOCHLORITE 0.25% IRRIG 473 ML BOTTLE TOP SCH (08:58)
[2019-07-04] MEDS: GABAPENTIN 300 MG CAPSULE PO SCH ×3 (08:59→20:34)
[2019-07-04] MEDS: MAGNESIUM CHLORIDE 64 MG TABLET PO SCH ×3 (08:59→20:34)
[2019-07-04] MEDS: ASCORBIC ACID 500 MG TABLET PO SCH ×2 (08:59→20:34)
[2019-07-04] MEDS: PANTOPRAZOLE 40 MG TABLET PO SCH (08:59)
[2019-07-05 05:48] LABS: Basophils % 0.4 % (0.0-0.8); Eosinophils # 0.1 10*3/uL (0.0-0.87); Hematocrit 29.7 VOL% (42.0-52.0); Hemoglobin 9.4 GM/DL (14.0-18.0); Immature Granulocytes % 0.8 %; Immature Granulocytes Absolute 0.02 #; Lymphocytes # 0.3 10*3/uL (1.4-4.0); Lymphocytes % 10.5 % (21.2-54.2); Mean Corpuscular HGB Conc 31.6 GM/DL (32-36); Mean Corpuscular Volume 97.4 FL (87-102); Mean Platelet Volume 10.2 FL (9.6-12.0); Monocytes % 13.7 % (1.7-12.7); Neutrophils % 70.6 % (38.7-73.9); Platelet Count 99 T/CUMM (130-400); Red Blood Count 3.05 MC/CUMM (3.8-5.5); Red Cell Distribution Width 13.5 % (9.3-17.3); White Blood Count 2.5 T/CUMM (4-12)
[2019-07-05] MEDS: ceFAZolin 1,000 MG in SYRINGE 1 EACH IV SCH ×3 (05:56→21:44)
[2019-07-05] MEDS: KETOROLAC 15 MG/1 ML VIAL IV PRN ×3 (05:56→21:36)
[2019-07-05 06:15] LABS: Calcium 9.1 MG/DL (8.5-10.1); Osmolality,Calculated 276.4 MOS/KG (273-304)
[2019-07-05 06:24] LABS: Band Neutrophils 2 % (0-10); Eosinophils 1 % (0-10); Hypochromasia Slight; Lymphocytes 8 % (20-55); Platelet Estimate Adequate; Segmented Neutrophils 79 % (50-85); Total Cells Counted 100
[2019-07-05] MEDS: MAGNESIUM SULF RIDER 2 GM in PREMIX 1 EACH IV PRN (06:26)
[2019-07-05 07:57] LABS: PT Patient Result 11.3 SECS
[2019-07-05] MEDS ORDERED: ETOMIDATE 20 MG/10 ML VIAL IV ONE (10:00)
[2019-07-05] MEDS ORDERED: LEVOFLOXACIN 750 MG TABLET PO SCH (10:00)
[2019-07-05] MEDS ORDERED: PROPOFOL 200 MG/20 ML VIAL IV ONE (10:00)
[2019-07-05] MEDS: ASPIRIN EC 81 MG TABLET PO SCH (10:29)
[2019-07-05] MEDS: MAGNESIUM CHLORIDE 64 MG TABLET PO SCH ×3 (10:29→21:35)
[2019-07-05] MEDS: LEVOFLOXACIN 500 MG TABLET PO SCH (10:30)
[2019-07-05] MEDS: PANTOPRAZOLE 40 MG TABLET PO SCH (10:30)
[2019-07-05] MEDS: POTASSIUM CHLORIDE 20 MEQ TABLET PO SCH ×2 (10:30→21:35)
[2019-07-05] MEDS: ASCORBIC ACID 500 MG TABLET PO SCH ×2 (10:30→21:32)
[2019-07-05] MEDS: GABAPENTIN 300 MG CAPSULE PO SCH ×3 (10:30→21:35)
[2019-07-05] MEDS: MORPHINE ER 15 MG TABLET PO SCH ×2 (10:31→21:35)
[2019-07-05] MEDS: SODIUM HYPOCHLORITE 0.25% IRRIG 473 ML BOTTLE TOP SCH (10:32)
[2019-07-05] MEDS: CHLORHEXIDINE 4% SOLN 118 ML BOTTLE TOP SCH (10:32)
[2019-07-05] MEDS: METHADONE 10 MG TABLET PO SCH ×2 (10:45→21:33)
[2019-07-05] MEDS: LIDOCAINE 5% PATCH TRANSDERM SCH (13:36)
[2019-07-06] MEDS: KETOROLAC 15 MG/1 ML VIAL IV PRN (04:16)
[2019-07-06] MEDS: ceFAZolin 1,000 MG in SYRINGE 1 EACH IV SCH (05:55)
[2019-07-06 07:49] LABS: Basophils % 0.5 % (0.0-0.8); Eosinophils # 0.1 10*3/uL (0.0-0.87); Hematocrit 30.4 VOL% (42.0-52.0); Hemoglobin 9.3 GM/DL (14.0-18.0); Immature Granulocytes % 0.5 %; Immature Granulocytes Absolute 0.01 #; Lymphocytes # 0.3 10*3/uL (1.4-4.0); Lymphocytes % 12.2 % (21.2-54.2); Mean Corpuscular HGB Conc 30.6 GM/DL (32-36); Mean Corpuscular Volume 97.4 FL (87-102); Mean Platelet Volume 10.3 FL (9.6-12.0); Monocytes % 15.4 % (1.7-12.7); Neutrophils % 66.4 % (38.7-73.9); Platelet Count 103 T/CUMM (130-400); Red Blood Count 3.12 MC/CUMM (3.8-5.5); Red Cell Distribution Width 13.6 % (9.3-17.3); White Blood Count 2.2 T/CUMM (4-12)
[2019-07-06 08:04] VITALS: BP 182/72
[2019-07-06 08:06] LABS: Hypochromasia 1+; Platelet Estimate Decreased
[2019-07-06] MEDS: LIDOCAINE 5% PATCH TRANSDERM SCH (09:09)
[2019-07-06] MEDS: MAGNESIUM CHLORIDE 64 MG TABLET PO SCH (09:10)
[2019-07-06] MEDS: fentaNYL 25 MCG/HR PATCH TRANSDERM SCH (09:10)
[2019-07-06] MEDS: MORPHINE ER 15 MG TABLET PO SCH (09:11)
[2019-07-06] MEDS: ASCORBIC ACID 500 MG TABLET PO SCH (09:11)
[2019-07-06] MEDS: ASPIRIN EC 81 MG TABLET PO SCH (09:11)
[2019-07-06] MEDS: POTASSIUM CHLORIDE 20 MEQ TABLET PO SCH (09:11)
[2019-07-06] MEDS: LEVOFLOXACIN 500 MG TABLET PO SCH (09:12)
[2019-07-06] MEDS: SODIUM HYPOCHLORITE 0.25% IRRIG 473 ML BOTTLE TOP SCH (09:12)
[2019-07-06] MEDS: GABAPENTIN 300 MG CAPSULE PO SCH (09:12)
[2019-07-06] MEDS: PANTOPRAZOLE 40 MG TABLET PO SCH (09:12)
[2019-07-06] MEDS: CHLORHEXIDINE 4% SOLN 118 ML BOTTLE TOP SCH (09:13)
[2019-07-06] MEDS: METHADONE 10 MG TABLET PO SCH (09:13)
== END 2019-07-06 16:16 | disposition home health service (06) | DRG 192 ==
LOC: EDBD → EDUNIT# → N.ED 15:26 → N.EDINP 17:44 → SUATTDRO 17:44 → N.TELEN 18:59 → N.CC 06-29 15:59 → N.TELEN 07-05 14:50
PROVIDERS: ATTEND Hospitalist
PROC: EGDWEBL (ICD-10-PCS; 2019-07-05 08:35)

== ENCOUNTER 2020-06-19 09:00 | Inpatient (IN) ==
[2020-06-19] MEDS ORDERED: BISACODYL 5 MG TABLET PO PRN (13:15)
[2020-06-19] MEDS ORDERED: ONDANSETRON 4 MG/2 ML VIAL IV PRN (13:15)
[2020-06-19] MEDS ORDERED: ALBUTEROL/IPRATROPIUM 3 ML NEB RESP TX PRN (13:15)
[2020-06-19] MEDS ORDERED: ACETAMINOPHEN 325 MG TABLET PO PRN (13:15)
[2020-06-19 13:42] LABS: Basophils % 0.3 % (0.0-0.8); Eosinophils # 0.2 10*3/uL (0.0-0.87); Eosinophils % 1.9 % (0.00-10.9); Hematocrit 36.9 VOL% (42.0-52.0); Immature Granulocytes % 1.1 %; Immature Granulocytes Absolute 0.11 #; Lymphocytes # 0.7 10*3/uL (1.4-4.0); Lymphocytes % 6.7 % (21.2-54.2); Mean Corpuscular HGB Conc 32.5 GM/DL (32-36); Mean Corpuscular Volume 90.4 FL (87-102); Mean Platelet Volume 9.4 FL (9.6-12.0); Monocytes % 10.6 % (1.7-12.7); Neutrophils % 79.4 % (38.7-73.9); Platelet Count 239 T/CUMM (130-400); Red Blood Count 4.08 MC/CUMM (3.8-5.5); Red Cell Distribution Width 14.6 % (9.3-17.3); White Blood Count 10.3 T/CUMM (4-12)
[2020-06-19 14:17] LABS: Albumin 2.2 G/DL (3.4-5.0); Bilirubin,Total 0.9 MG/DL (0.2-1.0); Calcium 8.7 MG/DL (8.5-10.1); Osmolality,Calculated 260.7 MOS/KG (273-304); Total Protein 8.4 G/DL (6.4-8.3)
[2020-06-19] MEDS: LACTATED RINGERS 1,000 ML IV SCH (15:26)
[2020-06-19] MEDS: PIPERACILLIN/TAZOBACTAM 3,375 MG in SODIUM CHLORIDE 0.9% 100 ML IV SCH ×2 (15:27→21:42)
[2020-06-19] MEDS: oxyCODONE/ACETAMINOPHEN 5-325 MG TABLET PO PRN ×2 (16:12→20:14)
[2020-06-20] MEDS: oxyCODONE/ACETAMINOPHEN 5-325 MG TABLET PO PRN ×3 (00:39→09:43)
[2020-06-20] MEDS: LACTATED RINGERS 1,000 ML IV SCH ×2 (04:17→22:31)
[2020-06-20] MEDS: PIPERACILLIN/TAZOBACTAM 3,375 MG in SODIUM CHLORIDE 0.9% 100 ML IV SCH ×3 (05:15→21:12)
[2020-06-20] MEDS ORDERED: POTASSIUM CHLORIDE 20 MEQ TABLET PO PRN (06:39)
[2020-06-20] MEDS ORDERED: MAGNESIUM SULF RIDER 2 GM in PREMIX 1 EACH IV PRN (06:40)
[2020-06-20] MEDS ORDERED: MAGNESIUM SULF RIDER 4 GM in PREMIX 1 EACH IV PRN (06:40)
[2020-06-20 08:28] LABS: Calcium 8.9 MG/DL (8.5-10.1)
[2020-06-20] MEDS: PANTOPRAZOLE 40 MG TABLET PO SCH (09:05)
[2020-06-20] MEDS: HYDROmorphone 2 MG/1 ML VIAL IV PRN ×3 (11:36→21:11)
[2020-06-21] MEDS: HYDROmorphone 2 MG/1 ML VIAL IV PRN ×5 (01:49→19:32)
[2020-06-21] MEDS: LACTATED RINGERS 1,000 ML IV SCH ×2 (04:50→19:29)
[2020-06-21] MEDS: PIPERACILLIN/TAZOBACTAM 3,375 MG in SODIUM CHLORIDE 0.9% 100 ML IV SCH ×3 (05:40→21:30)
[2020-06-21] MEDS: METHADONE 10 MG/1 ML PO SCH (08:20)
[2020-06-21] MEDS: PANTOPRAZOLE 40 MG TABLET PO SCH (10:02)
[2020-06-22] MEDS: HYDROmorphone 2 MG/1 ML VIAL IV PRN ×9 (00:13→20:03)
[2020-06-22] MEDS: PIPERACILLIN/TAZOBACTAM 3,375 MG in SODIUM CHLORIDE 0.9% 100 ML IV SCH ×3 (05:45→21:12)
[2020-06-22] MEDS: LACTATED RINGERS 1,000 ML IV SCH ×2 (06:50→10:25)
[2020-06-22] MEDS ORDERED: SEVOFLURANE 1 UNIT/15 MINUTE INH ONE (08:01)
[2020-06-22] MEDS ORDERED: MIDAZOLAM 2 MG/2 ML VIAL ONE (08:01)
[2020-06-22] MEDS ORDERED: LIDOCAINE 2% 5 ML VIAL ONE (08:01)
[2020-06-22] MEDS ORDERED: fentaNYL 100 MCG/2 ML VIAL ONE (08:01)
[2020-06-22] MEDS ORDERED: GLYCOPYRROLATE 0.4 MG/2 ML VIAL ONE (08:02)
[2020-06-22] MEDS ORDERED: PHENYLEPHRINE 1 MG/10 ML SYRINGE IV ONE (08:02)
[2020-06-22] MEDS ORDERED: propofoL 200 MG/20 ML VIAL IV ONE (08:02)
[2020-06-22] MEDS ORDERED: ONDANSETRON 4 MG/2 ML VIAL IV PRN (08:08)
[2020-06-22] MEDS ORDERED: ONDANSETRON 4 MG/2 ML VIAL ONE (08:09)
[2020-06-22] MEDS ORDERED: HYDROmorphone 2 MG/1 ML VIAL ONE (08:09)
[2020-06-22] MEDS: METHADONE 10 MG/1 ML PO SCH (09:45)
[2020-06-22] MEDS: PANTOPRAZOLE 40 MG TABLET PO SCH (09:45)
[2020-06-22] MEDS: GABAPENTIN 300 MG CAPSULE PO SCH ×3 (11:05→20:02)
[2020-06-22] MEDS: ASPIRIN EC 81 MG TABLET PO SCH (11:05)
[2020-06-22] MEDS: METOPROLOL TARTRATE 25 MG TABLET PO SCH ×2 (11:06→20:02)
[2020-06-23] MEDS: HYDROmorphone 2 MG/1 ML VIAL IV PRN ×5 (01:08→20:44)
[2020-06-23] MEDS: PIPERACILLIN/TAZOBACTAM 3,375 MG in SODIUM CHLORIDE 0.9% 100 ML IV SCH ×3 (05:49→21:01)
[2020-06-23] MEDS: LACTATED RINGERS 1,000 ML IV SCH (05:51)
[2020-06-23] MEDS: PANTOPRAZOLE 40 MG TABLET PO SCH (09:53)
[2020-06-23] MEDS: GABAPENTIN 300 MG CAPSULE PO SCH ×3 (09:53→20:44)
[2020-06-23] MEDS: ASPIRIN EC 81 MG TABLET PO SCH (09:53)
[2020-06-23] MEDS: METHADONE 10 MG/1 ML PO SCH (09:55)
[2020-06-23] MEDS: METOPROLOL TARTRATE 25 MG TABLET PO SCH ×2 (09:56→20:44)
[2020-06-23] MEDS: VANCOMYCIN INJ 1,250 MG in SODIUM CHLORIDE 0.9% 250 ML IV SCH (13:46)
[2020-06-24] MEDS: VANCOMYCIN INJ 1,250 MG in SODIUM CHLORIDE 0.9% 250 ML IV SCH ×2 (00:56→11:27)
[2020-06-24] MEDS: HYDROmorphone 2 MG/1 ML VIAL IV PRN ×5 (00:58→21:32)
[2020-06-24] MEDS: PIPERACILLIN/TAZOBACTAM 3,375 MG in SODIUM CHLORIDE 0.9% 100 ML IV SCH ×3 (06:04→21:37)
[2020-06-24] MEDS: PANTOPRAZOLE 40 MG TABLET PO SCH (09:37)
[2020-06-24] MEDS: ASPIRIN EC 81 MG TABLET PO SCH (09:37)
[2020-06-24] MEDS: GABAPENTIN 300 MG CAPSULE PO SCH ×3 (09:37→21:33)
[2020-06-24] MEDS: METOPROLOL TARTRATE 25 MG TABLET PO SCH ×2 (09:42→21:33)
[2020-06-24] MEDS: METHADONE 10 MG/1 ML PO SCH (10:47)
[2020-06-25] MEDS: VANCOMYCIN INJ 1,250 MG in SODIUM CHLORIDE 0.9% 250 ML IV SCH (00:46)
[2020-06-25] MEDS: HYDROmorphone 2 MG/1 ML VIAL IV PRN ×4 (02:39→22:33)
[2020-06-25] MEDS: PIPERACILLIN/TAZOBACTAM 3,375 MG in SODIUM CHLORIDE 0.9% 100 ML IV SCH (06:03)
[2020-06-25 06:18] LABS: Basophils % 0.6 % (0.0-0.8); Eosinophils # 0.2 10*3/uL (0.0-0.87); Eosinophils % 7.4 % (0.00-10.9); Hematocrit 31.4 VOL% (42.0-52.0); Hemoglobin 9.9 GM/DL (14.0-18.0); Immature Granulocytes % 2.1 %; Immature Granulocytes Absolute 0.07 #; Lymphocytes # 0.3 10*3/uL (1.4-4.0); Lymphocytes % 10.1 % (21.2-54.2); Mean Corpuscular HGB Conc 31.5 GM/DL (32-36); Mean Corpuscular Volume 93.5 FL (87-102); Mean Platelet Volume 9.2 FL (9.6-12.0); Neutrophils % 63.8 % (38.7-73.9); Platelet Count 137 T/CUMM (130-400); Red Blood Count 3.36 MC/CUMM (3.8-5.5); Red Cell Distribution Width 14.9 % (9.3-17.3); White Blood Count 3.3 T/CUMM (4-12)
[2020-06-25 06:37] LABS: Calcium 8.9 MG/DL (8.5-10.1); Osmolality,Calculated 275.5 MOS/KG (273-304)
[2020-06-25 07:23] LABS: Band Neutrophils 4 % (0-10); Eosinophils 6 % (0-10); Lymphocytes 9 % (20-55); Metamyelocytes 1 %; Segmented Neutrophils 68 % (50-85); Total Cells Counted 100
[2020-06-25 07:24] LABS: Hypochromasia 2+; Platelet Estimate Decreased
[2020-06-25] MEDS: PANTOPRAZOLE 40 MG TABLET PO SCH (10:22)
[2020-06-25] MEDS: METOPROLOL TARTRATE 25 MG TABLET PO SCH ×2 (10:22→22:32)
[2020-06-25] MEDS: GABAPENTIN 300 MG CAPSULE PO SCH ×3 (10:22→22:32)
[2020-06-25] MEDS: ASPIRIN EC 81 MG TABLET PO SCH (10:22)
[2020-06-25] MEDS: METHADONE 10 MG/1 ML PO SCH (12:28)
[2020-06-25] MEDS: LEVOFLOXACIN 750 MG TABLET PO SCH (12:28)
[2020-06-25] MEDS: CLINDAMYCIN 300 MG CAPSULE PO SCH ×3 (13:53→22:32)
[2020-06-26] MEDS: HYDROmorphone 2 MG/1 ML VIAL IV PRN (05:51)
[2020-06-26] MEDS: CLINDAMYCIN 300 MG CAPSULE PO SCH ×2 (08:53→12:38)
[2020-06-26] MEDS: ASPIRIN EC 81 MG TABLET PO SCH (08:53)
[2020-06-26] MEDS: METOPROLOL TARTRATE 25 MG TABLET PO SCH (08:53)
[2020-06-26] MEDS: PANTOPRAZOLE 40 MG TABLET PO SCH (08:54)
[2020-06-26] MEDS: METHADONE 10 MG/1 ML PO SCH (08:54)
[2020-06-26] MEDS: GABAPENTIN 300 MG CAPSULE PO SCH (08:54)
[2020-06-26] MEDS: LEVOFLOXACIN 750 MG TABLET PO SCH (10:19)
[2020-06-26 11:18] VITALS: BP 102/85
== END 2020-06-26 14:00 | disposition home health service (06) | DRG 305 ==
LOC: N.ADMINP → N.3E
PROVIDERS: ADMIT Surgery; ATTEND Surgery

== ENCOUNTER 2020-10-24 12:45 | Inpatient (IN) ==
[2020-10-24] MEDS ORDERED: INFLUENZA VIRUS VACCINE 0.5 ML SYRINGE IM ONE (16:06)
[2020-10-24] MEDS ORDERED: ONDANSETRON 4 MG/2 ML VIAL IV PRN (16:07)
[2020-10-24] MEDS ORDERED: PNEUMOCOCCAL VACCINE (13 VALENT) 0.5 ML SYRINGE IM ONE (16:07)
[2020-10-24] MEDS ORDERED: ALBUTEROL 2.5 MG/3 ML NEB RESP TX PRN (16:07)
[2020-10-24] MEDS ORDERED: ENOXAPARIN 40 MG/0.4 ML SYRINGE SUBCUT SCH (16:30)
[2020-10-24] MEDS: LEVOFLOXACIN INJ 750 MG in PREMIX 1 EACH IV SCH (17:30)
[2020-10-24] MEDS: ALBUTEROL/IPRATROPIUM 3 ML NEB RESP TX SCH (19:12)
[2020-10-24] MEDS: CEFEPIME 1,000 MG in SODIUM CHLORIDE 0.9% 100 ML IV SCH (20:49)
[2020-10-25] MEDS: ALBUTEROL/IPRATROPIUM 3 ML NEB RESP TX SCH ×5 (01:03→23:14)
[2020-10-25] MEDS: CEFEPIME 1,000 MG in SODIUM CHLORIDE 0.9% 100 ML IV SCH ×4 (02:50→21:22)
[2020-10-25 04:44] LABS: Albumin 1.7 G/DL (3.4-5.0); Calcium 10.6 MG/DL (8.5-10.1); Osmolality,Calculated 269.7 MOS/KG (273-304); Thyroid Stimulating Hormone 0.855 uIU/ml (0.358-3.74); Total Protein 6.6 G/DL (6.4-8.3)
[2020-10-25] MEDS ORDERED: HYDROCORTISONE 100 MG VIAL IV SCH (08:30)
[2020-10-25 08:59] LABS: Hemoglobin 13.8 GM/DL (14.0-18.0); Immature Granulocytes % 6.8 %; Immature Granulocytes Absolute 1.57 #; Lymphocytes # 0.2 10*3/uL (1.4-4.0); Lymphocytes % 0.8 % (21.2-54.2); Mean Corpuscular HGB Conc 34.5 GM/DL (32-36); Mean Corpuscular Volume 87.9 FL (87-102); Mean Platelet Volume 10.3 FL (9.6-12.0); Monocytes % 4.2 % (1.7-12.7); NRBC # 0.05 10*3/uL; Neutrophils % 88.2 % (38.7-73.9); Platelet Count 131 T/CUMM (130-400); Red Blood Count 4.55 MC/CUMM (3.8-5.5); Red Cell Distribution Width 17.6 % (9.3-17.3); White Blood Count 22.9 T/CUMM (4-12)
[2020-10-25] MEDS ORDERED: PANTOPRAZOLE 40 MG TABLET PO SCH (09:00)
[2020-10-25] MEDS: PANTOPRAZOLE 40 MG TABLET PO SCH ×2 (09:03→21:21)
[2020-10-25 09:11] LABS: INR 1.6; PT Patient Result 16.6 SECS (9.8-11.9)
[2020-10-25 09:19] LABS: Band Neutrophils 6 % (0-10); Hypochromasia 1+; Lymphocytes 1 % (20-55); Segmented Neutrophils 89 % (50-85); Total Cells Counted 100
[2020-10-25 09:20] LABS: Burr Cells Slight
[2020-10-25 09:21] LABS: Microcytosis 1+; Polychromasia Slight
[2020-10-25 09:22] LABS: Platelet Estimate Adequate
[2020-10-25] MEDS: METHADONE 10 MG TABLET PO SCH ×3 (09:49→21:21)
[2020-10-25] MEDS ORDERED: FUROSEMIDE 40 MG/4 ML VIAL IV ONE (10:00)
[2020-10-25] MEDS: methylPREDNISolone SOD SUC 40 MG/1 ML VIAL IV SCH ×2 (10:59→18:15)
[2020-10-25] MEDS: ENOXAPARIN 80 MG/0.8 ML SYRINGE SUBCUT SCH (13:15)
[2020-10-25] MEDS: LEVOFLOXACIN INJ 750 MG in PREMIX 1 EACH IV SCH (16:48)
[2020-10-25 23:21] LABS: ABG Base Excess 4.7 MMOL/L (-2.5-2.5); ABG HCO3 28.4 MMOL/L (20-26); ABG Oxygen Saturation 88.7 % (95-100); ABG PCO2 38.8 MM HG (35-48); ABG PH 7.473 (7.35-7.45); ABG PO2 59.5 MM HG (80-95); ABG TCO2 24.8 MMOL/L (23-27)
[2020-10-26] MEDS: ENOXAPARIN 80 MG/0.8 ML SYRINGE SUBCUT SCH ×2 (00:40→15:00)
[2020-10-26] MEDS: CEFEPIME 1,000 MG in SODIUM CHLORIDE 0.9% 100 ML IV SCH ×4 (02:20→20:55)
[2020-10-26] MEDS: methylPREDNISolone SOD SUC 40 MG/1 ML VIAL IV SCH ×3 (02:20→17:56)
[2020-10-26 03:27] LABS: Allen Test Positive; Pt O2 Delivery Device Other
[2020-10-26 03:28] LABS: Basophils # 0.2 10*3/uL (0.0-0.2); Basophils % 0.7 % (0.0-0.8); Hematocrit 37.1 VOL% (42.0-52.0); Hemoglobin 12.6 GM/DL (14.0-18.0); Immature Granulocytes % 6.2 %; Immature Granulocytes Absolute 1.26 #; Lymphocytes # 0.6 10*3/uL (1.4-4.0); Lymphocytes % 3.1 % (21.2-54.2); Mean Corpuscular Volume 88.3 FL (87-102); Mean Platelet Volume 10.5 FL (9.6-12.0); Monocytes % 4.5 % (1.7-12.7); NRBC # 0.06 10*3/uL; Neutrophils % 85.5 % (38.7-73.9); Platelet Count 100 T/CUMM (130-400); Red Cell Distribution Width 17.6 % (9.3-17.3); White Blood Count 20.2 T/CUMM (4-12)
[2020-10-26 03:28] LABS: ABG Base Excess 4.4 MMOL/L (-2.5-2.5); ABG Oxygen Saturation 82.6 % (95-100); ABG PCO2 35.8 MM HG (35-48); ABG PH 7.495 (7.35-7.45); ABG PO2 49.7 MM HG (80-95)
[2020-10-26 03:44] LABS: Albumin 1.6 G/DL (3.4-5.0); Bilirubin,Total 2.6 MG/DL (0.2-1.0); Calcium 11.1 MG/DL (8.5-10.1); Osmolality,Calculated 282.2 MOS/KG (273-304); Potassium 3.7 MMOL/L (3.5-5.1); Total Protein 6.5 G/DL (6.4-8.3)
[2020-10-26 04:06] LABS: Band Neutrophils 1 % (0-10); Lymphocytes 4 % (20-55); Myelocytes 1 %; Nucleated Red Blood Cells 1 (0-5); Platelet Estimate Normal; Segmented Neutrophils 89 % (50-85); Total Cells Counted 100
[2020-10-26] MEDS: ALBUTEROL/IPRATROPIUM 3 ML NEB RESP TX SCH ×3 (08:04→20:35)
[2020-10-26] MEDS: METHADONE 10 MG TABLET PO SCH ×2 (08:28→16:02)
[2020-10-26] MEDS: PANTOPRAZOLE 40 MG TABLET PO SCH (08:28)
[2020-10-26] MEDS ORDERED: SUCCINYLCHOLINE 200 MG/10 ML VIAL ONE (08:52)
[2020-10-26] MEDS ORDERED: ETOMIDATE 20 MG/10 ML VIAL IV ONE (08:52)
[2020-10-26] MEDS ORDERED: FUROSEMIDE 40 MG/4 ML VIAL IV ONE (08:52)
[2020-10-26] MEDS: ETOMIDATE 20 MG/10 ML VIAL IV ONE (09:02)
[2020-10-26] MEDS ORDERED: SUCCINYLCHOLINE 200 MG/10 ML VIAL IV ONE (09:03)
[2020-10-26] MEDS ORDERED: METOPROLOL TARTRATE 5 MG/5 ML VIAL IV ONE (09:39)
[2020-10-26] MEDS ORDERED: LACTATED RINGERS 1,000 ML IV ONE (09:45)
[2020-10-26] MEDS ORDERED: DOPamine 800 MG/250 ML PREMIX IV ONE (09:50)
[2020-10-26] MEDS: DOPamine 800 MG/250 ML PREMIX IV PRN ×2 (09:51→11:33)
[2020-10-26] MEDS ORDERED: MIDAZOLAM 10 MG/2 ML VIAL ONE (09:59)
[2020-10-26 10:00] LABS: ABG Base Excess 2.7 MMOL/L (-2.5-2.5); ABG HCO3 27.4 MMOL/L (20-26); ABG Oxygen Saturation 86.3 % (95-100); ABG PCO2 42.5 MM HG (35-48); ABG PH 7.427 (7.35-7.45); ABG PO2 59.2 MM HG (80-95); ABG TCO2 28.7 MMOL/L (23-27)
[2020-10-26] MEDS: MIDAZOLAM 100 MG in SODIUM CHLORIDE 0.9% 80 ML IV PRN (10:00)
[2020-10-26] MEDS ORDERED: MIDAZOLAM 2 MG/2 ML VIAL IV ONE (10:01)
[2020-10-26] MEDS ORDERED: DIGOXIN 0.5 MG/2 ML AMP ONE (10:09)
[2020-10-26] MEDS ORDERED: DIGOXIN 0.5 MG/2 ML AMP IV ONE ×2 (10:10→11:00)
[2020-10-26] MEDS ORDERED: SODIUM CHLORIDE 0.9% 250 ML IV ONE (11:22)
[2020-10-26] MEDS: SODIUM CHLORIDE 0.9% 1,000 ML IV SCH (13:00)
[2020-10-26 14:25] LABS: ABG Base Excess 2.1 MMOL/L (-2.5-2.5); ABG HCO3 26.1 MMOL/L (20-26); ABG Oxygen Saturation 91.4 % (95-100); ABG PCO2 43.8 MM HG (35-48); ABG PH 7.403 (7.35-7.45); ABG PO2 70.4 MM HG (80-95); ABG TCO2 23.7 MMOL/L (23-27); Allen Test Positive; Pt O2 Delivery Device Ventilator
[2020-10-26] MEDS: LEVOFLOXACIN INJ 750 MG in PREMIX 1 EACH IV SCH (17:00)
[2020-10-26] MEDS: PANTOPRAZOLE 40 MG VIAL IV SCH (20:59)
[2020-10-27] MEDS: ENOXAPARIN 80 MG/0.8 ML SYRINGE SUBCUT SCH ×2 (00:28→12:21)
[2020-10-27] MEDS: MIDAZOLAM 100 MG in SODIUM CHLORIDE 0.9% 80 ML IV PRN ×2 (00:33→21:15)
[2020-10-27] MEDS: methylPREDNISolone SOD SUC 40 MG/1 ML VIAL IV SCH ×3 (01:00→17:44)
[2020-10-27] MEDS: ALBUTEROL/IPRATROPIUM 3 ML NEB RESP TX SCH ×4 (01:19→20:07)
[2020-10-27] MEDS: CEFEPIME 1,000 MG in SODIUM CHLORIDE 0.9% 100 ML IV SCH ×4 (02:05→21:15)
[2020-10-27 03:57] LABS: ABG Base Excess 0.9 MMOL/L (-2.5-2.5); ABG HCO3 25.1 MMOL/L (20-26); ABG Oxygen Saturation 88.7 % (95-100); ABG PCO2 38.9 MM HG (35-48); ABG PH 7.428 (7.35-7.45); ABG PO2 62.7 MM HG (80-95); ABG TCO2 26.3 MMOL/L (23-27); Allen Test Positive; Pt O2 Delivery Device Ventilator
[2020-10-27 04:29] LABS: Hematocrit 38.3 VOL% (42.0-52.0); Hemoglobin 12.8 GM/DL (14.0-18.0); Immature Granulocytes % 5.9 %; Immature Granulocytes Absolute 1.47 #; Lymphocytes # 0.9 10*3/uL (1.4-4.0); Lymphocytes % 3.7 % (21.2-54.2); Mean Corpuscular HGB Conc 33.4 GM/DL (32-36); Mean Corpuscular Volume 88.5 FL (87-102); Monocytes % 3.7 % (1.7-12.7); NRBC # 0.05 10*3/uL; Neutrophils % 86.7 % (38.7-73.9); Red Blood Count 4.33 MC/CUMM (3.8-5.5); Red Cell Distribution Width 17.7 % (9.3-17.3); White Blood Count 24.8 T/CUMM (4-12)
[2020-10-27 04:30] LABS: Platelet Count 89 T/CUMM (130-400)
[2020-10-27 04:52] LABS: Band Neutrophils 5 % (0-10); Burr Cells Slight; Hypochromasia Slight; Lymphocytes 4 % (20-55); Microcytosis Slight; Platelet Estimate Decreased; Segmented Neutrophils 89 % (50-85); Total Cells Counted 100
[2020-10-27 04:53] LABS: Troponin I 0.485 NG/ML (0.00-0.045)
[2020-10-27 04:57] LABS: Albumin 1.6 G/DL (3.4-5.0); Osmolality,Calculated 296.7 MOS/KG (273-304); Potassium 3.8 MMOL/L (3.5-5.1); Total Protein 6.5 G/DL (6.4-8.3)
[2020-10-27] MEDS: PANTOPRAZOLE 40 MG VIAL IV SCH ×2 (09:28→21:50)
[2020-10-27] MEDS: SODIUM CHLORIDE 0.9% 1,000 ML IV SCH (09:29)
[2020-10-27] MEDS: DOPamine 800 MG/250 ML PREMIX IV PRN (12:31)
[2020-10-27] MEDS: LEVOFLOXACIN INJ 750 MG in PREMIX 1 EACH IV SCH (17:30)
[2020-10-28] MEDS: ENOXAPARIN 80 MG/0.8 ML SYRINGE SUBCUT SCH ×2 (00:31→12:33)
[2020-10-28] MEDS: ALBUTEROL/IPRATROPIUM 3 ML NEB RESP TX SCH ×4 (00:54→19:15)
[2020-10-28 02:51] LABS: ABG Base Excess -2.5 MMOL/L (-2.5-2.5); ABG HCO3 22.3 MMOL/L (20-26); ABG Oxygen Saturation 97.1 % (95-100); ABG PCO2 41.8 MM HG (35-48); ABG PH 7.349 (7.35-7.45); ABG TCO2 20.3 MMOL/L (23-27); Allen Test Positive; Pt O2 Delivery Device Ventilator
[2020-10-28] MEDS: methylPREDNISolone SOD SUC 40 MG/1 ML VIAL IV SCH ×3 (02:55→21:27)
[2020-10-28] MEDS: CEFEPIME 1,000 MG in SODIUM CHLORIDE 0.9% 100 ML IV SCH ×3 (02:55→17:33)
[2020-10-28 04:07] LABS: Basophils # 0.2 10*3/uL (0.0-0.2); Basophils % 0.6 % (0.0-0.8); Immature Granulocytes % 6.3 %; Immature Granulocytes Absolute 2.17 #; Lymphocytes # 0.4 10*3/uL (1.4-4.0); Lymphocytes % 1.1 % (21.2-54.2); Mean Corpuscular HGB Conc 33.3 GM/DL (32-36); Mean Corpuscular Volume 90.7 FL (87-102); Mean Platelet Volume 11.3 FL (9.6-12.0); Monocytes % 4.5 % (1.7-12.7); NRBC # 0.04 10*3/uL; Neutrophils % 87.5 % (38.7-73.9); Red Cell Distribution Width 18.1 % (9.3-17.3); White Blood Count 34.5 T/CUMM (4-12)
[2020-10-28 04:08] LABS: Platelet Count 70 T/CUMM (130-400)
[2020-10-28 04:28] LABS: Band Neutrophils 3 % (0-10); Lymphocytes 3 % (20-55); Metamyelocytes 1 %; Nucleated Red Blood Cells 1 (0-5); Segmented Neutrophils 92 % (50-85); Total Cells Counted 100
[2020-10-28 04:29] LABS: Hypochromasia 1+
[2020-10-28 04:30] LABS: Albumin 1.5 G/DL (3.4-5.0); Bilirubin,Total 1.9 MG/DL (0.2-1.0); Calcium 10.1 MG/DL (8.5-10.1); Microcytosis 1+; Osmolality,Calculated 309.4 MOS/KG (273-304); Platelet Estimate Decreased; Total Protein 6.5 G/DL (6.4-8.3)
[2020-10-28] MEDS: SODIUM CHLORIDE 0.9% 1,000 ML IV SCH (04:30)
[2020-10-28] MEDS: PANTOPRAZOLE 40 MG VIAL IV SCH ×2 (09:45→21:27)
[2020-10-28] MEDS ORDERED: methylPREDNISolone SOD SUC 40 MG/1 ML VIAL IV SCH (11:30)
[2020-10-28] MEDS ORDERED: GLUCAGON 1 MG VIAL IM PRN (11:56)
[2020-10-28] MEDS ORDERED: DEXTROSE 50% 25 GM/50 ML VIAL IV PRN (11:56)
[2020-10-28] MEDS: INSULIN REGULAR 100 UNIT/ML SUBCUT SCH ×2 (12:53→17:45)
[2020-10-28] MEDS: LEVOFLOXACIN INJ 750 MG in PREMIX 1 EACH IV SCH (16:29)
[2020-10-29] MEDS: SODIUM CHLORIDE 0.9% 1,000 ML IV SCH ×2 (00:30→20:41)
[2020-10-29] MEDS: CEFEPIME 1,000 MG in SODIUM CHLORIDE 0.9% 100 ML IV SCH ×4 (00:50→17:11)
[2020-10-29] MEDS: INSULIN REGULAR 100 UNIT/ML SUBCUT SCH ×4 (00:50→18:21)
[2020-10-29] MEDS: ALBUTEROL/IPRATROPIUM 3 ML NEB RESP TX SCH ×4 (01:03→19:27)
[2020-10-29] MEDS: ENOXAPARIN 80 MG/0.8 ML SYRINGE SUBCUT SCH (01:16)
[2020-10-29 04:12] LABS: Basophils # 0.1 10*3/uL (0.0-0.2); Basophils % 0.2 % (0.0-0.8); Hematocrit 36.3 VOL% (42.0-52.0); Hemoglobin 11.6 GM/DL (14.0-18.0); Immature Granulocytes % 5.4 %; Immature Granulocytes Absolute 1.33 #; Lymphocytes # 0.2 10*3/uL (1.4-4.0); Lymphocytes % 0.7 % (21.2-54.2); Mean Corpuscular Volume 92.8 FL (87-102); Mean Platelet Volume 10.6 FL (9.6-12.0); Monocytes % 4.3 % (1.7-12.7); NRBC # 0.06 10*3/uL; Neutrophils % 89.4 % (38.7-73.9); Red Blood Count 3.91 MC/CUMM (3.8-5.5); Red Cell Distribution Width 18.5 % (9.3-17.3); White Blood Count 24.7 T/CUMM (4-12)
[2020-10-29 04:13] LABS: Platelet Count 43 T/CUMM (130-400)
[2020-10-29 04:36] LABS: ABG Base Excess -3.8 MMOL/L (-2.5-2.5); ABG HCO3 21.3 MMOL/L (20-26); ABG Oxygen Saturation 98.2 % (95-100); ABG PCO2 38.4 MM HG (35-48); ABG PH 7.361 (7.35-7.45); ABG PO2 126.3 MM HG (80-95); ABG TCO2 22.4 MMOL/L (23-27); Allen Test Positive; Pt O2 Delivery Device Ventilator
[2020-10-29 04:55] LABS: Albumin 1.5 G/DL (3.4-5.0); Bilirubin,Total 1.2 MG/DL (0.2-1.0); Calcium 9.6 MG/DL (8.5-10.1); Osmolality,Calculated 326.4 MOS/KG (273-304); Potassium 3.7 MMOL/L (3.5-5.1)
[2020-10-29] MEDS: MIDAZOLAM 100 MG in SODIUM CHLORIDE 0.9% 80 ML IV PRN (05:20)
[2020-10-29] MEDS ORDERED: POTASSIUM CHLORIDE 20 MEQ/15 ML UDCUP PER TUBE PRN (07:11)
[2020-10-29 07:49] LABS: Band Neutrophils 2 % (0-10); Nucleated Red Blood Cells 1 (0-5); Segmented Neutrophils 94 % (50-85); Total Cells Counted 100
[2020-10-29 07:50] LABS: Hypochromasia 1+; Microcytosis 1+; Ovalocytes Slight; Platelet Estimate Decreased
[2020-10-29] MEDS: methylPREDNISolone SOD SUC 40 MG/1 ML VIAL IV SCH ×2 (09:43→20:41)
[2020-10-29] MEDS: FAMOTIDINE 20 MG/2 ML VIAL IV SCH ×2 (09:43→20:41)
[2020-10-29] MEDS: LEVOFLOXACIN INJ 750 MG in PREMIX 1 EACH IV SCH (17:09)
[2020-10-29] MEDS ORDERED: APIXABAN 5 MG TABLET PO SCH ×2 (21:00)
[2020-10-30] MEDS: INSULIN REGULAR 100 UNIT/ML SUBCUT SCH ×4 (00:16→17:39)
[2020-10-30] MEDS: CEFEPIME 1,000 MG in SODIUM CHLORIDE 0.9% 100 ML IV SCH ×4 (00:17→17:30)
[2020-10-30] MEDS: ALBUTEROL/IPRATROPIUM 3 ML NEB RESP TX SCH ×4 (00:24→20:00)
[2020-10-30 04:38] LABS: ABG Base Excess -2.9 MMOL/L (-2.5-2.5); ABG Oxygen Saturation 85.5 % (95-100); ABG PCO2 38.6 MM HG (35-48); ABG PH 7.373 (7.35-7.45); ABG TCO2 23.1 MMOL/L (23-27); Allen Test Positive; Pt O2 Delivery Device Ventilator
[2020-10-30 04:54] LABS: Basophils # 0.1 10*3/uL (0.0-0.2); Basophils % 0.3 % (0.0-0.8); Hematocrit 36.8 VOL% (42.0-52.0); Hemoglobin 11.7 GM/DL (14.0-18.0); Immature Granulocytes % 2.9 %; Immature Granulocytes Absolute 0.65 #; Lymphocytes # 0.3 10*3/uL (1.4-4.0); Lymphocytes % 1.2 % (21.2-54.2); Mean Corpuscular HGB Conc 31.8 GM/DL (32-36); Mean Corpuscular Volume 94.4 FL (87-102); Monocytes % 2.3 % (1.7-12.7); NRBC # 0.07 10*3/uL; Neutrophils % 93.3 % (38.7-73.9); Red Cell Distribution Width 19.8 % (9.3-17.3); White Blood Count 22.7 T/CUMM (4-12)
[2020-10-30 04:55] LABS: Albumin 1.6 G/DL (3.4-5.0); Bilirubin,Direct 0.72 MG/DL (0.0-0.20); Bilirubin,Indirect 0.7 MG/DL (0.0-1.0); Bilirubin,Total 1.4 MG/DL (0.2-1.0); Calcium 10.1 MG/DL (8.5-10.1); Osmolality,Calculated 335.9 MOS/KG (273-304); Potassium 4.4 MMOL/L (3.5-5.1); Total Protein 6.1 G/DL (6.4-8.3)
[2020-10-30 04:59] LABS: Platelet Count 42 T/CUMM (130-400)
[2020-10-30 05:16] LABS: Hypochromasia Slight; Lymphocytes 1 % (20-55); Microcytosis 1+; Ovalocytes Slight; Platelet Estimate Decreased; Segmented Neutrophils 96 % (50-85); Total Cells Counted 100
[2020-10-30] MEDS ORDERED: FUROSEMIDE 40 MG/4 ML VIAL IV ONE (08:38)
[2020-10-30] MEDS: FAMOTIDINE 20 MG/2 ML VIAL IV SCH ×2 (09:35→23:44)
[2020-10-30] MEDS: methylPREDNISolone SOD SUC 40 MG/1 ML VIAL IV SCH ×2 (09:35→21:29)
[2020-10-30] MEDS: APIXABAN 2.5 MG TABLET PO SCH ×2 (09:40→21:26)
[2020-10-30] MEDS: FLUCONAZOLE INJ 100 MG in IV BAG 1 EACH IV SCH (10:50)
[2020-10-30] MEDS: METOCLOPRAMIDE 10 MG/2 ML VIAL IV SCH ×2 (12:45→17:30)
[2020-10-30] MEDS: DEXTROSE 5% 1,000 ML IV SCH (12:50)
[2020-10-30] MEDS: MIDAZOLAM 100 MG in SODIUM CHLORIDE 0.9% 80 ML IV PRN (14:15)
[2020-10-30 19:56] LABS: HIT Interpretation Negative (Negative)
[2020-10-31] MEDS: ALBUTEROL/IPRATROPIUM 3 ML NEB RESP TX SCH ×4 (00:58→19:09)
[2020-10-31] MEDS ORDERED: INSULIN GLARGINE 100 UNIT/ML SUBCUT ONE (01:03)
[2020-10-31] MEDS: INSULIN REGULAR 100 UNIT/ML SUBCUT SCH ×5 (01:27→22:25)
[2020-10-31] MEDS: CEFEPIME 1,000 MG in SODIUM CHLORIDE 0.9% 100 ML IV SCH ×4 (01:32→18:05)
[2020-10-31] MEDS: METOCLOPRAMIDE 10 MG/2 ML VIAL IV SCH ×4 (01:33→18:05)
[2020-10-31 02:56] LABS: ABG Base Excess -0.5 MMOL/L (-2.5-2.5); ABG HCO3 23.3 MMOL/L (20-26); ABG PCO2 35.6 MM HG (35-48); ABG PH 7.433 (7.35-7.45); ABG PO2 116.7 MM HG (80-95); ABG TCO2 24.4 MMOL/L (23-27); Allen Test Positive; Pt O2 Delivery Device Ventilator
[2020-10-31 04:34] LABS: Basophils % 0.2 % (0.0-0.8); Hemoglobin 12.3 GM/DL (14.0-18.0); Immature Granulocytes % 2.1 %; Immature Granulocytes Absolute 0.54 #; Lymphocytes # 0.2 10*3/uL (1.4-4.0); Lymphocytes % 0.8 % (21.2-54.2); Mean Corpuscular HGB Conc 31.5 GM/DL (32-36); Mean Corpuscular Volume 96.1 FL (87-102); Mean Platelet Volume 13.2 FL (9.6-12.0); NRBC # 0.08 10*3/uL; Neutrophils % 94.9 % (38.7-73.9); Red Blood Count 4.06 MC/CUMM (3.8-5.5); Red Cell Distribution Width 20.5 % (9.3-17.3); White Blood Count 25.5 T/CUMM (4-12)
[2020-10-31 04:39] LABS: Platelet Count 57 T/CUMM (130-400)
[2020-10-31 04:49] LABS: Albumin 1.7 G/DL (3.4-5.0); Bilirubin,Direct 0.74 MG/DL (0.0-0.20); Bilirubin,Indirect 0.6 MG/DL (0.0-1.0); Bilirubin,Total 1.3 MG/DL (0.2-1.0); Calcium 11.1 MG/DL (8.5-10.1); Osmolality,Calculated 337.6 MOS/KG (273-304); Potassium 5.3 MMOL/L (3.5-5.1); Total Protein 6.9 G/DL (6.4-8.3)
[2020-10-31 05:09] LABS: Lymphocytes 1 % (20-55); Platelet Estimate Decreased; Segmented Neutrophils 98 % (50-85); Total Cells Counted 100
[2020-10-31 05:10] LABS: Hypochromasia 1+; Microcytosis 1+
[2020-10-31] MEDS: FAMOTIDINE 20 MG/2 ML VIAL IV SCH ×2 (08:55→22:34)
[2020-10-31] MEDS: APIXABAN 2.5 MG TABLET PO SCH ×2 (08:55→22:25)
[2020-10-31] MEDS: methylPREDNISolone SOD SUC 40 MG/1 ML VIAL IV SCH (08:55)
[2020-10-31] MEDS: FLUCONAZOLE INJ 100 MG in IV BAG 1 EACH IV SCH (10:40)
[2020-10-31] MEDS: DEXTROSE 5% 1,000 ML IV SCH ×3 (11:30→22:35)
[2020-10-31] MEDS: MIDAZOLAM 100 MG in SODIUM CHLORIDE 0.9% 80 ML IV PRN (17:15)
[2020-10-31] MEDS: INSULIN GLARGINE 100 UNIT/ML SUBCUT SCH (22:26)
[2020-11-01] MEDS: ALBUTEROL/IPRATROPIUM 3 ML NEB RESP TX SCH ×4 (00:28→19:10)
[2020-11-01] MEDS: CEFEPIME 1,000 MG in SODIUM CHLORIDE 0.9% 100 ML IV SCH ×2 (01:37→06:17)
[2020-11-01] MEDS: INSULIN REGULAR 100 UNIT/ML SUBCUT SCH ×4 (01:37→18:02)
[2020-11-01] MEDS: METOCLOPRAMIDE 10 MG/2 ML VIAL IV SCH ×4 (03:44→18:02)
[2020-11-01 05:09] LABS: ABG Base Excess 0.8 MMOL/L (-2.5-2.5); ABG HCO3 23.7 MMOL/L (20-26); ABG Oxygen Saturation 93.4 % (95-100); ABG PCO2 32.1 MM HG (35-48); ABG PH 7.486 (7.35-7.45); ABG PO2 69.4 MM HG (80-95); ABG TCO2 24.7 MMOL/L (23-27)
[2020-11-01 07:45] LABS: Basophils # 0.1 10*3/uL (0.0-0.2); Basophils % 0.2 % (0.0-0.8); Eosinophils % 0.1 % (0.00-10.9); Hematocrit 36.3 VOL% (42.0-52.0); Hemoglobin 11.7 GM/DL (14.0-18.0); Immature Granulocytes % 1.9 %; Immature Granulocytes Absolute 0.52 #; Lymphocytes # 0.3 10*3/uL (1.4-4.0); Lymphocytes % 1.2 % (21.2-54.2); Mean Corpuscular HGB Conc 32.2 GM/DL (32-36); Mean Corpuscular Volume 93.8 FL (87-102); Mean Platelet Volume 12.1 FL (9.6-12.0); NRBC # 0.11 10*3/uL; Neutrophils % 94.6 % (38.7-73.9); Platelet Count 69 T/CUMM (130-400); Red Blood Count 3.87 MC/CUMM (3.8-5.5); Red Cell Distribution Width 21.1 % (9.3-17.3); White Blood Count 27.4 T/CUMM (4-12)
[2020-11-01 07:56] LABS: Calcium 11.5 MG/DL (8.5-10.1); Osmolality,Calculated 323.9 MOS/KG (273-304); Potassium 4.5 MMOL/L (3.5-5.1)
[2020-11-01 08:30] LABS: Band Neutrophils 2 % (0-10); Lymphocytes 1 % (20-55); Segmented Neutrophils 93 % (50-85); Total Cells Counted 100
[2020-11-01 08:31] LABS: Anisocytosis 1+; Microcytosis 1+; Platelet Estimate Decreased; Polychromasia Slight
[2020-11-01 08:32] LABS: Hypochromasia 2+
[2020-11-01] MEDS: DEXTROSE 5% 1,000 ML IV SCH ×2 (08:35→18:05)
[2020-11-01] MEDS: APIXABAN 2.5 MG TABLET PO SCH ×2 (08:59→21:47)
[2020-11-01] MEDS: INSULIN GLARGINE 100 UNIT/ML SUBCUT SCH (08:59)
[2020-11-01] MEDS: FAMOTIDINE 20 MG/2 ML VIAL IV SCH ×2 (08:59→21:43)
[2020-11-01] MEDS ORDERED: methylPREDNISolone SOD SUC 40 MG/1 ML VIAL IV SCH (09:00)
[2020-11-01] MEDS ORDERED: FUROSEMIDE 20 MG/2 ML VIAL IV ONE (09:14)
[2020-11-01] MEDS: FLUCONAZOLE INJ 100 MG in IV BAG 1 EACH IV SCH (12:00)
[2020-11-01] MEDS: SODIUM CHLORIDE 23.4% CONC INJ 38.5 MEQ in STERILE WATER INJ 1,000 ML IV SCH (20:05)
[2020-11-02] MEDS: INSULIN REGULAR 100 UNIT/ML SUBCUT SCH ×5 (00:30→23:46)
[2020-11-02] MEDS: METOCLOPRAMIDE 10 MG/2 ML VIAL IV SCH ×4 (00:30→17:52)
[2020-11-02] MEDS: ALBUTEROL/IPRATROPIUM 3 ML NEB RESP TX SCH ×4 (01:15→19:17)
[2020-11-02 04:06] LABS: Basophils # 0.1 10*3/uL (0.0-0.2); Basophils % 0.2 % (0.0-0.8); Hematocrit 36.9 VOL% (42.0-52.0); Hemoglobin 11.7 GM/DL (14.0-18.0); Immature Granulocytes % 1.4 %; Immature Granulocytes Absolute 0.43 #; Lymphocytes # 0.3 10*3/uL (1.4-4.0); Mean Corpuscular HGB Conc 31.7 GM/DL (32-36); Mean Corpuscular Volume 94.6 FL (87-102); Mean Platelet Volume 12.3 FL (9.6-12.0); Monocytes % 2.7 % (1.7-12.7); Neutrophils % 94.7 % (38.7-73.9); Platelet Count 92 T/CUMM (130-400); Red Cell Distribution Width 21.3 % (9.3-17.3); White Blood Count 30.1 T/CUMM (4-12)
[2020-11-02 04:25] LABS: Albumin 1.7 G/DL (3.4-5.0); Bilirubin,Direct 1.06 MG/DL (0.0-0.20); Bilirubin,Indirect 0.6 MG/DL (0.0-1.0); Bilirubin,Total 1.7 MG/DL (0.2-1.0); Calcium 10.4 MG/DL (8.5-10.1); Osmolality,Calculated 318.6 MOS/KG (273-304); Potassium 5.1 MMOL/L (3.5-5.1); Total Protein 6.4 G/DL (6.4-8.3)
[2020-11-02 04:28] LABS: ABG Base Excess 1.2 MMOL/L (-2.5-2.5); ABG HCO3 23.8 MMOL/L (20-26); ABG PCO2 31.1 MM HG (35-48); ABG PH 7.501 (7.35-7.45); ABG PO2 76.7 MM HG (80-95); ABG TCO2 24.7 MMOL/L (23-27); Allen Test Positive; Pt O2 Delivery Device Ventilator
[2020-11-02] MEDS: MIDAZOLAM 100 MG in SODIUM CHLORIDE 0.9% 80 ML IV PRN ×2 (05:09→06:41)
[2020-11-02] MEDS ORDERED: ACETAMINOPHEN 325 MG/10.15 ML UDCUP PO PRN ×2 (07:25→07:39)
[2020-11-02 07:31] LABS: Lymphocytes 2 % (20-55); Segmented Neutrophils 98 % (50-85); Total Cells Counted 100
[2020-11-02 07:32] LABS: Hypochromasia 2+; Platelet Estimate Decreased; Polychromasia Few
[2020-11-02] MEDS: SODIUM CHLORIDE 23.4% CONC INJ 38.5 MEQ in STERILE WATER INJ 1,000 ML IV SCH ×2 (07:55→17:55)
[2020-11-02] MEDS: INSULIN GLARGINE 100 UNIT/ML SUBCUT SCH (08:24)
[2020-11-02] MEDS: FAMOTIDINE 20 MG/2 ML VIAL IV SCH ×2 (08:24→21:08)
[2020-11-02] MEDS: predniSONE 20 MG TABLET PO SCH (08:24)
[2020-11-02] MEDS: APIXABAN 2.5 MG TABLET PO SCH (08:24)
[2020-11-02] MEDS: DEXMEDETOMIDINE 200 MCG in SODIUM CHLORIDE 0.9% 48 ML IV PRN ×3 (09:48→23:27)
[2020-11-02] MEDS ORDERED: PIPERACILLIN/TAZOBACTAM 3,375 MG in SODIUM CHLORIDE 0.9% 100 ML IV SCH (11:00)
[2020-11-02] MEDS: FLUCONAZOLE INJ 100 MG in IV BAG 1 EACH IV SCH (12:12)
[2020-11-02 13:38] LABS: ABG Base Excess 1.4 MMOL/L (-2.5-2.5); ABG HCO3 25.6 MMOL/L (20-26); ABG Oxygen Saturation 94.8 % (95-100); ABG PCO2 36.9 MM HG (35-48); ABG PH 7.444 (7.35-7.45); ABG TCO2 22.9 MMOL/L (23-27); Allen Test Positive; Pt O2 Delivery Device Ventilator
[2020-11-02] MEDS: VANCOMYCIN INJ 1,250 MG in SODIUM CHLORIDE 0.9% 250 ML IV SCH (17:00)
[2020-11-02] MEDS: MEROPENEM 500 MG in SODIUM CHLORIDE 0.9% 100 ML IV SCH ×2 (17:24→23:31)
[2020-11-02] MEDS: MICAFUNGIN 100 MG in SODIUM CHLORIDE 0.9% 100 ML IV SCH (17:24)
[2020-11-02] MEDS ORDERED: DEXMEDETOMIDINE 400 MCG in SODIUM CHLORIDE 0.9% 96 ML IV PRN (19:17)
[2020-11-02] MEDS: ENOXAPARIN 80 MG/0.8 ML SYRINGE SUBCUT SCH (21:08)
[2020-11-03] MEDS: METOCLOPRAMIDE 10 MG/2 ML VIAL IV SCH ×5 (00:35→23:55)
[2020-11-03] MEDS: ALBUTEROL/IPRATROPIUM 3 ML NEB RESP TX SCH ×4 (00:41→19:28)
[2020-11-03 04:21] LABS: ABG Base Excess 0.1 MMOL/L (-2.5-2.5); ABG HCO3 24.5 MMOL/L (20-26); ABG Oxygen Saturation 96.4 % (95-100); ABG PCO2 36.3 MM HG (35-48); ABG PO2 91.6 MM HG (80-95); ABG TCO2 21.8 MMOL/L (23-27); Allen Test Positive; Pt O2 Delivery Device Ventilator
[2020-11-03 05:04] LABS: Basophils % 0.1 % (0.0-0.8); Eosinophils # 0.1 10*3/uL (0.0-0.87); Eosinophils % 0.4 % (0.00-10.9); Hematocrit 32.9 VOL% (42.0-52.0); Hemoglobin 10.5 GM/DL (14.0-18.0); Immature Granulocytes % 1.1 %; Immature Granulocytes Absolute 0.17 #; Lymphocytes # 0.2 10*3/uL (1.4-4.0); Lymphocytes % 1.3 % (21.2-54.2); Mean Corpuscular HGB Conc 31.9 GM/DL (32-36); Mean Corpuscular Volume 94.8 FL (87-102); Mean Platelet Volume 12.8 FL (9.6-12.0); Monocytes % 2.9 % (1.7-12.7); NRBC # 0.02 10*3/uL; Neutrophils % 94.2 % (38.7-73.9); Platelet Count 59 T/CUMM (130-400); Red Blood Count 3.47 MC/CUMM (3.8-5.5); Red Cell Distribution Width 20.6 % (9.3-17.3); White Blood Count 15.9 T/CUMM (4-12)
[2020-11-03] MEDS: SODIUM CHLORIDE 23.4% CONC INJ 38.5 MEQ in STERILE WATER INJ 1,000 ML IV SCH (05:10)
[2020-11-03] MEDS: MEROPENEM 500 MG in SODIUM CHLORIDE 0.9% 100 ML IV SCH ×4 (05:25→23:09)
[2020-11-03 05:32] LABS: Calcium 9.7 MG/DL (8.5-10.1); Osmolality,Calculated 312.1 MOS/KG (273-304); Potassium 4.9 MMOL/L (3.5-5.1)
[2020-11-03 05:45] LABS: Band Neutrophils 8 % (0-10); Lymphocytes 1 % (20-55); Segmented Neutrophils 91 % (50-85); Total Cells Counted 100
[2020-11-03 05:46] LABS: Anisocytosis Slight; Macrocytosis 1+; Platelet Estimate Decreased
[2020-11-03] MEDS: DEXMEDETOMIDINE 200 MCG in SODIUM CHLORIDE 0.9% 48 ML IV PRN ×3 (06:00→17:52)
[2020-11-03] MEDS: INSULIN REGULAR 100 UNIT/ML SUBCUT SCH ×4 (06:42→23:54)
[2020-11-03] MEDS: VANCOMYCIN INJ 1,250 MG in SODIUM CHLORIDE 0.9% 250 ML IV SCH ×2 (06:52→18:08)
[2020-11-03] MEDS: ENOXAPARIN 80 MG/0.8 ML SYRINGE SUBCUT SCH (08:27)
[2020-11-03] MEDS: FAMOTIDINE 20 MG/2 ML VIAL IV SCH ×2 (08:27→20:56)
[2020-11-03] MEDS: INSULIN GLARGINE 100 UNIT/ML SUBCUT SCH (08:27)
[2020-11-03] MEDS: predniSONE 20 MG TABLET PO SCH (08:27)
[2020-11-03] MEDS: MICAFUNGIN 100 MG in SODIUM CHLORIDE 0.9% 100 ML IV SCH (18:07)
[2020-11-04] MEDS: ALBUTEROL/IPRATROPIUM 3 ML NEB RESP TX SCH ×4 (01:00→20:31)
[2020-11-04 04:25] LABS: Allen Test Positive; Pt O2 Delivery Device Ventilator
[2020-11-04 04:26] LABS: ABG Base Excess 2.6 MMOL/L (-2.5-2.5); ABG HCO3 26.7 MMOL/L (20-26); ABG Oxygen Saturation 97.2 % (95-100); ABG PCO2 33.8 MM HG (35-48); ABG PH 7.484 (7.35-7.45); ABG PO2 90.4 MM HG (80-95); ABG TCO2 21.2 MMOL/L (23-27)
[2020-11-04 04:55] LABS: INR 1.1; Partial Thromboplastin Time 28.8 SECS (23.9-33.8)
[2020-11-04 04:56] LABS: Calcium 9.8 MG/DL (8.5-10.1); Osmolality,Calculated 305.8 MOS/KG (273-304); Potassium 4.7 MMOL/L (3.5-5.1)
[2020-11-04 05:03] LABS: Albumin 1.7 G/DL (3.4-5.0); Bilirubin,Direct 1.16 MG/DL (0.0-0.20); Bilirubin,Indirect 0.8 MG/DL (0.0-1.0); Total Protein 6.7 G/DL (6.4-8.3)
[2020-11-04 05:16] LABS: Basophils % 0.1 % (0.0-0.8); Eosinophils % 0.1 % (0.00-10.9); Hematocrit 36.7 VOL% (42.0-52.0); Hemoglobin 11.9 GM/DL (14.0-18.0); Immature Granulocytes % 0.7 %; Immature Granulocytes Absolute 0.15 #; Lymphocytes # 0.2 10*3/uL (1.4-4.0); Lymphocytes % 1.1 % (21.2-54.2); Mean Corpuscular HGB Conc 32.4 GM/DL (32-36); Mean Corpuscular Volume 94.3 FL (87-102); Mean Platelet Volume 13.3 FL (9.6-12.0); Platelet Count 107 T/CUMM (130-400); Red Blood Count 3.89 MC/CUMM (3.8-5.5); Red Cell Distribution Width 21.1 % (9.3-17.3); White Blood Count 20.5 T/CUMM (4-12)
[2020-11-04] MEDS: MEROPENEM 500 MG in SODIUM CHLORIDE 0.9% 100 ML IV SCH ×4 (05:50→23:36)
[2020-11-04] MEDS: INSULIN REGULAR 100 UNIT/ML SUBCUT SCH ×4 (06:25→23:46)
[2020-11-04] MEDS: METOCLOPRAMIDE 10 MG/2 ML VIAL IV SCH ×4 (06:31→23:36)
[2020-11-04] MEDS: VANCOMYCIN INJ 1,250 MG in SODIUM CHLORIDE 0.9% 250 ML IV SCH ×2 (06:33→18:20)
[2020-11-04 07:00] LABS: Hypochromasia 2+; Lymphocytes 2 % (20-55); Platelet Estimate Decreased; Segmented Neutrophils 93 % (50-85); Total Cells Counted 100
[2020-11-04] MEDS: INSULIN GLARGINE 100 UNIT/ML SUBCUT SCH (08:33)
[2020-11-04] MEDS: FAMOTIDINE 20 MG/2 ML VIAL IV SCH ×2 (08:34→20:58)
[2020-11-04] MEDS ORDERED: predniSONE 20 MG TABLET PO SCH (09:00)
[2020-11-04 10:16] LABS: ABG Base Excess 1.2 MMOL/L (-2.5-2.5); ABG HCO3 25.5 MMOL/L (20-26); ABG Oxygen Saturation 98.4 % (95-100); ABG PCO2 30.8 MM HG (35-48); ABG PH 7.493 (7.35-7.45); ABG TCO2 20.4 MMOL/L (23-27); Allen Test Positive; Pt O2 Delivery Device Ventilator
[2020-11-04] MEDS ORDERED: predniSONE 10 MG TABLET PO SCH (12:35)
[2020-11-04] MEDS: MICAFUNGIN 100 MG in SODIUM CHLORIDE 0.9% 100 ML IV SCH (17:16)
[2020-11-04] MEDS: ENOXAPARIN 80 MG/0.8 ML SYRINGE SUBCUT SCH (20:58)
[2020-11-05] MEDS: ALBUTEROL/IPRATROPIUM 3 ML NEB RESP TX SCH ×4 (01:10→21:04)
[2020-11-05 04:48] LABS: Basophils # 0.1 10*3/uL (0.0-0.2); Basophils % 0.2 % (0.0-0.8); Hematocrit 39.3 VOL% (42.0-52.0); Immature Granulocytes % 1.1 %; Immature Granulocytes Absolute 0.35 #; Lymphocytes # 0.3 10*3/uL (1.4-4.0); Lymphocytes % 0.8 % (21.2-54.2); Mean Corpuscular HGB Conc 32.1 GM/DL (32-36); Mean Corpuscular Volume 95.4 FL (87-102); Mean Platelet Volume 12.5 FL (9.6-12.0); Monocytes % 4.1 % (1.7-12.7); NRBC # 0.03 10*3/uL; Neutrophils % 93.8 % (38.7-73.9); Red Blood Count 4.12 MC/CUMM (3.8-5.5); Red Cell Distribution Width 22.1 % (9.3-17.3)
[2020-11-05 04:49] LABS: Hemoglobin 12.6 GM/DL (14.0-18.0); White Blood Count 33.1 T/CUMM (4-12)
[2020-11-05 04:50] LABS: Platelet Count 243 T/CUMM (130-400)
[2020-11-05 04:57] LABS: Calcium 10.1 MG/DL (8.5-10.1); Osmolality,Calculated 308.1 MOS/KG (273-304); Potassium 4.3 MMOL/L (3.5-5.1)
[2020-11-05 05:00] LABS: Albumin 1.8 G/DL (3.4-5.0); Bilirubin,Direct 2.16 MG/DL (0.0-0.20); Bilirubin,Indirect 2.3 MG/DL (0.0-1.0); Bilirubin,Total 4.5 MG/DL (0.2-1.0); Total Protein 6.6 G/DL (6.4-8.3)
[2020-11-05] MEDS: INSULIN REGULAR 100 UNIT/ML SUBCUT SCH ×3 (05:56→17:40)
[2020-11-05] MEDS: MEROPENEM 500 MG in SODIUM CHLORIDE 0.9% 100 ML IV SCH ×3 (06:02→16:20)
[2020-11-05] MEDS: METOCLOPRAMIDE 10 MG/2 ML VIAL IV SCH ×3 (06:33→17:40)
[2020-11-05 06:34] LABS: Platelet Estimate Normal
[2020-11-05 06:35] LABS: Anisocytosis 2+; Target Cells Few; Tear Drop Cells Few
[2020-11-05 06:36] LABS: Macrocytosis Slight
[2020-11-05] MEDS: ENOXAPARIN 80 MG/0.8 ML SYRINGE SUBCUT SCH (09:04)
[2020-11-05] MEDS: VANCOMYCIN INJ 1,250 MG in SODIUM CHLORIDE 0.9% 250 ML IV SCH (09:04)
[2020-11-05] MEDS: FAMOTIDINE 20 MG/2 ML VIAL IV SCH ×2 (09:04→22:04)
[2020-11-05] MEDS: INSULIN GLARGINE 100 UNIT/ML SUBCUT SCH (09:23)
[2020-11-05] MEDS: APIXABAN 5 MG TABLET PO SCH ×2 (12:22→22:04)
[2020-11-05] MEDS: LEVOFLOXACIN INJ 750 MG in PREMIX 1 EACH IV SCH (14:43)
[2020-11-05] MEDS: MICAFUNGIN 100 MG in SODIUM CHLORIDE 0.9% 100 ML IV SCH (17:39)
[2020-11-06] MEDS: MEROPENEM 500 MG in SODIUM CHLORIDE 0.9% 100 ML IV SCH ×5 (00:29→23:26)
[2020-11-06] MEDS: METOCLOPRAMIDE 10 MG/2 ML VIAL IV SCH ×4 (00:40→18:07)
[2020-11-06] MEDS: INSULIN REGULAR 100 UNIT/ML SUBCUT SCH ×4 (00:46→18:07)
[2020-11-06] MEDS: ALBUTEROL/IPRATROPIUM 3 ML NEB RESP TX SCH ×4 (02:28→19:19)
[2020-11-06 05:59] LABS: Basophils % 0.1 % (0.0-0.8); Hematocrit 41.5 VOL% (42.0-52.0); Hemoglobin 12.9 GM/DL (14.0-18.0); Immature Granulocytes % 1.2 %; Immature Granulocytes Absolute 0.34 #; Lymphocytes # 0.4 10*3/uL (1.4-4.0); Lymphocytes % 1.4 % (21.2-54.2); Mean Corpuscular HGB Conc 31.1 GM/DL (32-36); Mean Corpuscular Volume 97.4 FL (87-102); Mean Platelet Volume 12.5 FL (9.6-12.0); Monocytes % 7.2 % (1.7-12.7); NRBC # 0.02 10*3/uL; Neutrophils % 90.1 % (38.7-73.9); Platelet Count 317 T/CUMM (130-400); Red Blood Count 4.26 MC/CUMM (3.8-5.5); Red Cell Distribution Width 23.5 % (9.3-17.3); White Blood Count 28.3 T/CUMM (4-12)
[2020-11-06 06:05] LABS: INR 1.4; PT Patient Result 14.5 SECS (9.8-11.9)
[2020-11-06 06:32] LABS: Albumin 1.7 G/DL (3.4-5.0); Bilirubin,Total 3.9 MG/DL (0.2-1.0); Calcium 10.7 MG/DL (8.5-10.1); Osmolality,Calculated 320.9 MOS/KG (273-304); Potassium 4.3 MMOL/L (3.5-5.1)
[2020-11-06 07:58] LABS: Band Neutrophils 9 % (0-10); Lymphocytes 2 % (20-55); Segmented Neutrophils 77 % (50-85); Total Cells Counted 100
[2020-11-06 07:59] LABS: Platelet Estimate Normal; Smudge Cells Few; Target Cells Few
[2020-11-06 08:02] LABS: Anisocytosis 2+; Macrocytosis 2+
[2020-11-06] MEDS ORDERED: METOPROLOL TARTRATE 5 MG/5 ML VIAL IV PRN (08:13)
[2020-11-06] MEDS: INSULIN GLARGINE 100 UNIT/ML SUBCUT SCH (08:35)
[2020-11-06] MEDS: GABAPENTIN 300 MG CAPSULE PO SCH ×2 (08:35→21:10)
[2020-11-06] MEDS: APIXABAN 5 MG TABLET PO SCH ×2 (08:35→21:09)
[2020-11-06] MEDS: METOPROLOL TARTRATE 25 MG TABLET PO SCH ×2 (08:35→21:10)
[2020-11-06] MEDS: VANCOMYCIN INJ 1,250 MG in SODIUM CHLORIDE 0.9% 250 ML IV SCH (08:36)
[2020-11-06] MEDS: predniSONE 5 MG TABLET PO SCH (08:36)
[2020-11-06] MEDS: FAMOTIDINE 20 MG/2 ML VIAL IV SCH ×2 (08:36→21:07)
[2020-11-06] MEDS: LEVOFLOXACIN INJ 750 MG in PREMIX 1 EACH IV SCH (13:34)
[2020-11-06 13:54] LABS: ABG Base Excess 2.6 MMOL/L (-2.5-2.5); ABG HCO3 26.7 MMOL/L (20-26); ABG PCO2 38.4 MM HG (35-48); ABG PH 7.449 (7.35-7.45); ABG PO2 92.1 MM HG (80-95); ABG TCO2 23.2 MMOL/L (23-27); Allen Test Positive
[2020-11-06] MEDS: MICAFUNGIN 100 MG in SODIUM CHLORIDE 0.9% 100 ML IV SCH (17:44)
[2020-11-07] MEDS: METOCLOPRAMIDE 10 MG/2 ML VIAL IV SCH ×4 (00:09→17:16)
[2020-11-07] MEDS: INSULIN REGULAR 100 UNIT/ML SUBCUT SCH ×4 (00:11→19:05)
[2020-11-07] MEDS: ALBUTEROL/IPRATROPIUM 3 ML NEB RESP TX SCH ×4 (01:08→19:23)
[2020-11-07] MEDS: MEROPENEM 500 MG in SODIUM CHLORIDE 0.9% 100 ML IV SCH ×4 (05:25→23:40)
[2020-11-07 05:55] LABS: Basophils # 0.1 10*3/uL (0.0-0.2); Basophils % 0.3 % (0.0-0.8); Eosinophils % 0.2 % (0.00-10.9); Hematocrit 46.3 VOL% (42.0-52.0); Hemoglobin 14.3 GM/DL (14.0-18.0); Immature Granulocytes % 0.7 %; Immature Granulocytes Absolute 0.13 #; Lymphocytes # 0.5 10*3/uL (1.4-4.0); Lymphocytes % 2.6 % (21.2-54.2); Mean Corpuscular HGB Conc 30.9 GM/DL (32-36); Mean Corpuscular Volume 100.4 FL (87-102); Mean Platelet Volume 12.2 FL (9.6-12.0); Monocytes % 7.3 % (1.7-12.7); Neutrophils % 88.9 % (38.7-73.9); Platelet Count 147 T/CUMM (130-400); Red Blood Count 4.61 MC/CUMM (3.8-5.5); White Blood Count 18.9 T/CUMM (4-12)
[2020-11-07 07:00] LABS: Band Neutrophils 4 % (0-10); Eosinophils 1 % (0-10); Lymphocytes 2 % (20-55); Platelet Estimate Adequate; Segmented Neutrophils 85 % (50-85); Total Cells Counted 100
[2020-11-07 07:01] LABS: Anisocytosis 1+; Macrocytosis 2+
[2020-11-07 07:12] LABS: INR 1.3; PT Patient Result 14.2 SECS (9.8-11.9)
[2020-11-07 09:32] LABS: Albumin 1.6 G/DL (3.4-5.0); Bilirubin,Total 4.5 MG/DL (0.2-1.0); Calcium 10.7 MG/DL (8.5-10.1); Potassium 4.3 MMOL/L (3.5-5.1); Total Protein 6.9 G/DL (6.4-8.3)
[2020-11-07] MEDS: APIXABAN 5 MG TABLET PO SCH ×2 (09:52→21:22)
[2020-11-07] MEDS: INSULIN GLARGINE 100 UNIT/ML SUBCUT SCH (09:52)
[2020-11-07] MEDS: FAMOTIDINE 20 MG/2 ML VIAL IV SCH ×2 (09:53→21:23)
[2020-11-07] MEDS: predniSONE 5 MG TABLET PO SCH (09:53)
[2020-11-07] MEDS: GABAPENTIN 300 MG CAPSULE PO SCH ×2 (09:53→21:23)
[2020-11-07] MEDS: METOPROLOL TARTRATE 25 MG TABLET PO SCH ×2 (09:53→21:23)
[2020-11-07] MEDS: VANCOMYCIN INJ 1,250 MG in SODIUM CHLORIDE 0.9% 250 ML IV SCH (10:13)
[2020-11-07] MEDS: LEVOFLOXACIN INJ 750 MG in PREMIX 1 EACH IV SCH (13:33)
[2020-11-08] MEDS: INSULIN REGULAR 100 UNIT/ML SUBCUT SCH ×5 (00:18→23:24)
[2020-11-08] MEDS: METOCLOPRAMIDE 10 MG/2 ML VIAL IV SCH ×5 (00:19→23:24)
[2020-11-08] MEDS: ALBUTEROL/IPRATROPIUM 3 ML NEB RESP TX SCH ×4 (01:11→19:54)
[2020-11-08 03:56] LABS: Basophils % 0.1 % (0.0-0.8); Eosinophils # 0.1 10*3/uL (0.0-0.87); Eosinophils % 0.3 % (0.00-10.9); Hematocrit 42.2 VOL% (42.0-52.0); Hemoglobin 12.9 GM/DL (14.0-18.0); Immature Granulocytes % 0.8 %; Immature Granulocytes Absolute 0.13 #; Lymphocytes # 0.6 10*3/uL (1.4-4.0); Lymphocytes % 3.4 % (21.2-54.2); Mean Corpuscular HGB Conc 30.6 GM/DL (32-36); Mean Corpuscular Volume 99.5 FL (87-102); Mean Platelet Volume 11.9 FL (9.6-12.0); Monocytes % 6.1 % (1.7-12.7); NRBC # 0.05 10*3/uL; Neutrophils % 89.3 % (38.7-73.9); Platelet Count 195 T/CUMM (130-400); Red Blood Count 4.24 MC/CUMM (3.8-5.5); Red Cell Distribution Width 23.9 % (9.3-17.3); White Blood Count 16.2 T/CUMM (4-12)
[2020-11-08 04:15] LABS: INR 1.5; PT Patient Result 15.4 SECS (9.8-11.9)
[2020-11-08 04:17] LABS: Albumin 1.5 G/DL (3.4-5.0); Calcium 10.5 MG/DL (8.5-10.1); Osmolality,Calculated 324.3 MOS/KG (273-304); Potassium 4.2 MMOL/L (3.5-5.1); Total Protein 6.5 G/DL (6.4-8.3)
[2020-11-08 04:31] LABS: Eosinophils 1 % (0-10); Lymphocytes 4 % (20-55); Platelet Estimate Normal; Segmented Neutrophils 91 % (50-85); Total Cells Counted 100
[2020-11-08] MEDS: MEROPENEM 500 MG in SODIUM CHLORIDE 0.9% 100 ML IV SCH ×4 (05:10→23:23)
[2020-11-08] MEDS: GABAPENTIN 300 MG CAPSULE PO SCH ×2 (09:09→20:08)
[2020-11-08] MEDS: predniSONE 5 MG TABLET PO SCH (09:09)
[2020-11-08] MEDS: APIXABAN 5 MG TABLET PO SCH ×2 (09:10→20:07)
[2020-11-08] MEDS: INSULIN GLARGINE 100 UNIT/ML SUBCUT SCH (09:10)
[2020-11-08] MEDS: METOPROLOL TARTRATE 25 MG TABLET PO SCH ×2 (09:10→20:08)
[2020-11-08] MEDS: FAMOTIDINE 20 MG/2 ML VIAL IV SCH ×2 (09:11→20:23)
[2020-11-08] MEDS: LEVOFLOXACIN INJ 750 MG in PREMIX 1 EACH IV SCH (16:04)
[2020-11-09] MEDS: ALBUTEROL/IPRATROPIUM 3 ML NEB RESP TX SCH ×4 (01:11→19:40)
[2020-11-09 03:51] LABS: Basophils % 0.1 % (0.0-0.8); Eosinophils # 0.1 10*3/uL (0.0-0.87); Eosinophils % 0.5 % (0.00-10.9); Immature Granulocytes % 0.6 %; Immature Granulocytes Absolute 0.08 #; Lymphocytes # 0.4 10*3/uL (1.4-4.0); Lymphocytes % 2.9 % (21.2-54.2); Mean Corpuscular Volume 98.8 FL (87-102); Mean Platelet Volume 11.9 FL (9.6-12.0); NRBC # 0.03 10*3/uL; Neutrophils % 90.9 % (38.7-73.9); Platelet Count 165 T/CUMM (130-400); Red Blood Count 4.25 MC/CUMM (3.8-5.5); Red Cell Distribution Width 23.6 % (9.3-17.3); White Blood Count 12.8 T/CUMM (4-12)
[2020-11-09 03:58] LABS: INR 1.4; PT Patient Result 14.5 SECS (9.8-11.9)
[2020-11-09 04:44] LABS: Eosinophils 1 % (0-10); Lymphocytes 1 % (20-55); Platelet Estimate Normal; Segmented Neutrophils 96 % (50-85); Total Cells Counted 100
[2020-11-09 04:46] LABS: Macrocytosis 1+; Target Cells 1+
[2020-11-09 04:50] LABS: Albumin 1.5 G/DL (3.4-5.0); Bilirubin,Total 6.6 MG/DL (0.2-1.0); Calcium 10.3 MG/DL (8.5-10.1); Osmolality,Calculated 321.3 MOS/KG (273-304); Potassium 4.6 MMOL/L (3.5-5.1); Total Protein 6.6 G/DL (6.4-8.3)
[2020-11-09 04:55] LABS: Polychromasia Slight
[2020-11-09] MEDS: MEROPENEM 500 MG in SODIUM CHLORIDE 0.9% 100 ML IV SCH (05:02)
[2020-11-09] MEDS: INSULIN REGULAR 100 UNIT/ML SUBCUT SCH ×3 (06:07→18:42)
[2020-11-09] MEDS: METOCLOPRAMIDE 10 MG/2 ML VIAL IV SCH ×3 (06:08→18:43)
[2020-11-09] MEDS: FAMOTIDINE 20 MG/2 ML VIAL IV SCH ×2 (09:07→23:25)
[2020-11-09] MEDS: INSULIN GLARGINE 100 UNIT/ML SUBCUT SCH (09:07)
[2020-11-09] MEDS: METOPROLOL TARTRATE 25 MG TABLET PO SCH ×2 (09:08→23:28)
[2020-11-09] MEDS: predniSONE 5 MG TABLET PO SCH (09:08)
[2020-11-09] MEDS: APIXABAN 5 MG TABLET PO SCH ×2 (09:08→23:27)
[2020-11-09] MEDS: LEVOFLOXACIN INJ 750 MG in PREMIX 1 EACH IV SCH (15:24)
[2020-11-10] MEDS: INSULIN REGULAR 100 UNIT/ML SUBCUT SCH ×4 (00:26→18:11)
[2020-11-10] MEDS: METOCLOPRAMIDE 10 MG/2 ML VIAL IV SCH ×4 (00:35→18:12)
[2020-11-10] MEDS: ALBUTEROL/IPRATROPIUM 3 ML NEB RESP TX SCH ×4 (01:51→20:02)
[2020-11-10 06:27] LABS: Albumin 1.4 G/DL (3.4-5.0); Bilirubin,Total 6.6 MG/DL (0.2-1.0); Calcium 10.2 MG/DL (8.5-10.1); Osmolality,Calculated 321.6 MOS/KG (273-304); Potassium 4.1 MMOL/L (3.5-5.1); Total Protein 6.8 G/DL (6.4-8.3)
[2020-11-10] MEDS: APIXABAN 5 MG TABLET PO SCH ×2 (08:58→22:14)
[2020-11-10] MEDS: SPIRONOLACTONE 25 MG TABLET PO SCH (08:58)
[2020-11-10] MEDS: INSULIN GLARGINE 100 UNIT/ML SUBCUT SCH (08:59)
[2020-11-10] MEDS: METOPROLOL TARTRATE 25 MG TABLET PO SCH ×2 (08:59→22:14)
[2020-11-10] MEDS: predniSONE 5 MG TABLET PO SCH (08:59)
[2020-11-10] MEDS: FAMOTIDINE 20 MG/2 ML VIAL IV SCH ×2 (08:59→22:15)
[2020-11-10] MEDS: LEVOFLOXACIN INJ 750 MG in PREMIX 1 EACH IV SCH (14:56)
[2020-11-11] MEDS: INSULIN REGULAR 100 UNIT/ML SUBCUT SCH ×4 (00:42→18:00)
[2020-11-11] MEDS: METOCLOPRAMIDE 10 MG/2 ML VIAL IV SCH ×4 (00:46→17:52)
[2020-11-11] MEDS: ALBUTEROL/IPRATROPIUM 3 ML NEB RESP TX SCH ×4 (01:57→19:57)
[2020-11-11 06:04] LABS: Basophils % 0.2 % (0.0-0.8); Eosinophils # 0.2 10*3/uL (0.0-0.87); Eosinophils % 1.4 % (0.00-10.9); Hematocrit 40.2 VOL% (42.0-52.0); Hemoglobin 12.9 GM/DL (14.0-18.0); Immature Granulocytes % 0.8 %; Immature Granulocytes Absolute 0.12 #; Lymphocytes # 0.5 10*3/uL (1.4-4.0); Lymphocytes % 3.5 % (21.2-54.2); Mean Corpuscular HGB Conc 32.1 GM/DL (32-36); Mean Corpuscular Volume 97.6 FL (87-102); Mean Platelet Volume 12.6 FL (9.6-12.0); NRBC # 0.05 10*3/uL; Neutrophils % 90.1 % (38.7-73.9); Platelet Count 172 T/CUMM (130-400); Red Blood Count 4.12 MC/CUMM (3.8-5.5); Red Cell Distribution Width 24.1 % (9.3-17.3); White Blood Count 15.3 T/CUMM (4-12)
[2020-11-11 06:17] LABS: Albumin 1.2 G/DL (3.4-5.0); Bilirubin,Total 5.6 MG/DL (0.2-1.0); Osmolality,Calculated 322.4 MOS/KG (273-304); Total Protein 6.2 G/DL (6.4-8.3)
[2020-11-11 06:31] LABS: Band Neutrophils 1 % (0-10); Hypochromasia Slight; Lymphocytes 1 % (20-55); Nucleated Red Blood Cells 1 (0-5); Platelet Estimate Adequate; Segmented Neutrophils 97 % (50-85); Target Cells Few; Total Cells Counted 100
[2020-11-11 06:32] LABS: Ovalocytes Slight
[2020-11-11] MEDS: FAMOTIDINE 20 MG/2 ML VIAL IV SCH ×2 (09:35→20:51)
[2020-11-11] MEDS: APIXABAN 5 MG TABLET PO SCH ×2 (09:35→21:19)
[2020-11-11] MEDS: SPIRONOLACTONE 25 MG TABLET PO SCH (09:36)
[2020-11-11] MEDS: predniSONE 5 MG TABLET PO SCH (09:36)
[2020-11-11] MEDS: INSULIN GLARGINE 100 UNIT/ML SUBCUT SCH (09:36)
[2020-11-11] MEDS: METOPROLOL TARTRATE 25 MG TABLET PO SCH ×2 (09:37→21:19)
[2020-11-11 14:41] LABS: Mycoplasma pneumoniae Ab Inter SEE COMMENTS; Mycoplasma pneumoniae Ab, IgG Positive (Negative); Mycoplasma pneumoniae Ab, IgM Negative (Negative)
[2020-11-11] MEDS: LEVOFLOXACIN INJ 750 MG in PREMIX 1 EACH IV SCH (15:53)
[2020-11-12] MEDS: ALBUTEROL/IPRATROPIUM 3 ML NEB RESP TX SCH ×4 (00:45→19:20)
[2020-11-12] MEDS: INSULIN REGULAR 100 UNIT/ML SUBCUT SCH ×5 (03:46→23:47)
[2020-11-12] MEDS: METOCLOPRAMIDE 10 MG/2 ML VIAL IV SCH ×4 (03:59→17:03)
[2020-11-12 06:44] LABS: Basophils % 0.2 % (0.0-0.8); Eosinophils # 0.3 10*3/uL (0.0-0.87); Eosinophils % 1.6 % (0.00-10.9); Hematocrit 41.9 VOL% (42.0-52.0); Hemoglobin 13.7 GM/DL (14.0-18.0); Immature Granulocytes % 1.2 %; Immature Granulocytes Absolute 0.21 #; Lymphocytes # 0.5 10*3/uL (1.4-4.0); Lymphocytes % 2.7 % (21.2-54.2); Mean Corpuscular HGB Conc 32.7 GM/DL (32-36); Mean Corpuscular Volume 97.4 FL (87-102); Mean Platelet Volume 12.6 FL (9.6-12.0); Monocytes % 3.4 % (1.7-12.7); NRBC # 0.04 10*3/uL; Neutrophils % 90.9 % (38.7-73.9); Platelet Count 168 T/CUMM (130-400); Red Cell Distribution Width 24.4 % (9.3-17.3); White Blood Count 17.9 T/CUMM (4-12)
[2020-11-12 06:52] LABS: INR 1.5; PT Patient Result 15.3 SECS (9.8-11.9)
[2020-11-12 07:05] LABS: Band Neutrophils 1 % (0-10); Eosinophils 1 % (0-10); Hypochromasia 1+; Lymphocytes 3 % (20-55); Macrocytosis 1+; Segmented Neutrophils 92 % (50-85); Target Cells Few; Total Cells Counted 100
[2020-11-12 07:06] LABS: Burr Cells Slight; Platelet Estimate Adequate; Polychromasia Slight
[2020-11-12 07:23] LABS: Albumin 1.3 G/DL (3.4-5.0); Bilirubin,Total 6.5 MG/DL (0.2-1.0); Calcium 9.1 MG/DL (8.5-10.1); Osmolality,Calculated 310.4 MOS/KG (273-304); Potassium 4.8 MMOL/L (3.5-5.1)
[2020-11-12] MEDS: predniSONE 5 MG TABLET PO SCH (08:49)
[2020-11-12] MEDS: SPIRONOLACTONE 25 MG TABLET PO SCH (08:49)
[2020-11-12] MEDS: INSULIN GLARGINE 100 UNIT/ML SUBCUT SCH (08:50)
[2020-11-12] MEDS: METOPROLOL TARTRATE 25 MG TABLET PO SCH ×2 (08:50→20:36)
[2020-11-12] MEDS: APIXABAN 5 MG TABLET PO SCH ×2 (08:50→20:36)
[2020-11-12] MEDS: FAMOTIDINE 20 MG/2 ML VIAL IV SCH ×2 (08:56→20:36)
[2020-11-12] MEDS: LEVOFLOXACIN INJ 750 MG in PREMIX 1 EACH IV SCH (13:46)
[2020-11-13] MEDS: METOCLOPRAMIDE 10 MG/2 ML VIAL IV SCH ×4 (00:05→16:59)
[2020-11-13] MEDS: ALBUTEROL/IPRATROPIUM 3 ML NEB RESP TX SCH ×4 (00:36→19:48)
[2020-11-13] MEDS: INSULIN REGULAR 100 UNIT/ML SUBCUT SCH ×3 (05:39→17:48)
[2020-11-13 07:19] LABS: Basophils % 0.2 % (0.0-0.8); Eosinophils # 0.3 10*3/uL (0.0-0.87); Eosinophils % 1.4 % (0.00-10.9); Hematocrit 43.7 VOL% (42.0-52.0); Hemoglobin 14.2 GM/DL (14.0-18.0); Immature Granulocytes % 1.8 %; Immature Granulocytes Absolute 0.39 #; Lymphocytes # 0.4 10*3/uL (1.4-4.0); Mean Corpuscular HGB Conc 32.5 GM/DL (32-36); Mean Corpuscular Volume 98.2 FL (87-102); Mean Platelet Volume 12.7 FL (9.6-12.0); Monocytes % 3.9 % (1.7-12.7); NRBC # 0.07 10*3/uL; Neutrophils % 90.7 % (38.7-73.9); Platelet Count 166 T/CUMM (130-400); Red Blood Count 4.45 MC/CUMM (3.8-5.5); Red Cell Distribution Width 24.3 % (9.3-17.3); White Blood Count 21.2 T/CUMM (4-12)
[2020-11-13 07:39] LABS: Eosinophils 1 % (0-10); Lymphocytes 2 % (20-55); Platelet Estimate Adequate; Segmented Neutrophils 95 % (50-85); Total Cells Counted 100
[2020-11-13 07:40] LABS: Macrocytosis Slight; Polychromasia Slight
[2020-11-13 09:39] LABS: Albumin 1.3 G/DL (3.4-5.0); Bilirubin,Total 7.7 MG/DL (0.2-1.0); Calcium 9.3 MG/DL (8.5-10.1); Osmolality,Calculated 306.7 MOS/KG (273-304); Potassium 4.3 MMOL/L (3.5-5.1); Total Protein 6.6 G/DL (6.4-8.3)
[2020-11-13] MEDS: SPIRONOLACTONE 25 MG TABLET PO SCH (10:25)
[2020-11-13] MEDS: APIXABAN 5 MG TABLET PO SCH ×2 (10:25→21:44)
[2020-11-13] MEDS: predniSONE 5 MG TABLET PO SCH (10:25)
[2020-11-13] MEDS: INSULIN GLARGINE 100 UNIT/ML SUBCUT SCH (10:26)
[2020-11-13] MEDS: FAMOTIDINE 20 MG/2 ML VIAL IV SCH ×2 (10:26→21:44)
[2020-11-13] MEDS: METOPROLOL TARTRATE 25 MG TABLET PO SCH ×2 (10:28→21:44)
[2020-11-14] MEDS: INSULIN REGULAR 100 UNIT/ML SUBCUT SCH ×4 (00:18→17:10)
[2020-11-14] MEDS: METOCLOPRAMIDE 10 MG/2 ML VIAL IV SCH ×4 (00:18→17:10)
[2020-11-14] MEDS: ALBUTEROL/IPRATROPIUM 3 ML NEB RESP TX SCH ×4 (01:35→19:25)
[2020-11-14 05:24] LABS: Basophils # 0.1 10*3/uL (0.0-0.2); Basophils % 0.2 % (0.0-0.8); Eosinophils # 0.3 10*3/uL (0.0-0.87); Eosinophils % 1.2 % (0.00-10.9); Hematocrit 42.7 VOL% (42.0-52.0); Hemoglobin 13.9 GM/DL (14.0-18.0); Immature Granulocytes % 1.8 %; Immature Granulocytes Absolute 0.37 #; Lymphocytes # 0.5 10*3/uL (1.4-4.0); Lymphocytes % 2.6 % (21.2-54.2); Mean Corpuscular HGB Conc 32.6 GM/DL (32-36); Mean Corpuscular Volume 96.2 FL (87-102); Mean Platelet Volume 12.7 FL (9.6-12.0); Monocytes % 4.1 % (1.7-12.7); NRBC # 0.08 10*3/uL; Neutrophils % 90.1 % (38.7-73.9); Platelet Count 154 T/CUMM (130-400); Red Blood Count 4.44 MC/CUMM (3.8-5.5); Red Cell Distribution Width 25.1 % (9.3-17.3); White Blood Count 20.8 T/CUMM (4-12)
[2020-11-14 05:39] LABS: Calcium 9.4 MG/DL (8.5-10.1); Osmolality,Calculated 310.6 MOS/KG (273-304); Potassium 4.3 MMOL/L (3.5-5.1)
[2020-11-14 05:44] LABS: Albumin 1.2 G/DL (3.4-5.0); Bilirubin,Total 7.6 MG/DL (0.2-1.0); Calcium 9.4 MG/DL (8.5-10.1); Osmolality,Calculated 309.6 MOS/KG (273-304); Potassium 4.4 MMOL/L (3.5-5.1); Total Protein 6.1 G/DL (6.4-8.3)
[2020-11-14 06:03] LABS: Eosinophils 2 % (0-10); Lymphocytes 2 % (20-55); Macrocytosis Slight; Platelet Estimate Adequate; Segmented Neutrophils 94 % (50-85); Total Cells Counted 100
[2020-11-14] MEDS: SPIRONOLACTONE 25 MG TABLET PO SCH ×3 (08:58→21:17)
[2020-11-14] MEDS: APIXABAN 5 MG TABLET PO SCH ×2 (08:58→21:18)
[2020-11-14] MEDS: INSULIN GLARGINE 100 UNIT/ML SUBCUT SCH (08:58)
[2020-11-14] MEDS: predniSONE 5 MG TABLET PO SCH (08:59)
[2020-11-14] MEDS: FAMOTIDINE 20 MG/2 ML VIAL IV SCH ×2 (08:59→21:15)
[2020-11-14] MEDS: METOPROLOL TARTRATE 25 MG TABLET PO SCH ×2 (08:59→22:55)
[2020-11-14] MEDS: FUROSEMIDE 20 MG/2 ML VIAL IV SCH (14:48)
[2020-11-14] MEDS: ACETYLCYSTEINE 20% 800 MG/4 ML VIAL RESP TX SCH (15:28)
[2020-11-14] MEDS: ALBUMIN 25% 12.5 GM in PREMIX 1 EACH IV SCH (16:15)
[2020-11-14 19:37] LABS: Allen Test Positive
[2020-11-14 19:39] LABS: ABG Base Excess -0.4 MMOL/L (-2.5-2.5); ABG HCO3 23.7 MMOL/L (20-26); ABG Oxygen Saturation 81.9 % (95-100); ABG PCO2 28.1 MM HG (35-48); ABG PH 7.494 (7.35-7.45); ABG PO2 49.9 MM HG (80-95); ABG TCO2 18.8 MMOL/L (23-27)
[2020-11-14 20:14] LABS: Calcium 9.4 MG/DL (8.5-10.1); Osmolality,Calculated 313.6 MOS/KG (273-304); Potassium 4.5 MMOL/L (3.5-5.1)
[2020-11-15] MEDS: INSULIN REGULAR 100 UNIT/ML SUBCUT SCH ×3 (00:16→12:13)
[2020-11-15] MEDS: METOCLOPRAMIDE 10 MG/2 ML VIAL IV SCH ×3 (00:38→12:13)
[2020-11-15] MEDS: ACETYLCYSTEINE 20% 800 MG/4 ML VIAL RESP TX SCH ×3 (01:26→15:27)
[2020-11-15] MEDS: ALBUTEROL/IPRATROPIUM 3 ML NEB RESP TX SCH ×3 (01:27→15:27)
[2020-11-15 03:39] LABS: ABG Base Excess -1.3 MMOL/L (-2.5-2.5); ABG HCO3 23.1 MMOL/L (20-26); ABG Oxygen Saturation 87.5 % (95-100); ABG PCO2 26.5 MM HG (35-48); ABG PH 7.494 (7.35-7.45); ABG PO2 57.7 MM HG (80-95); ABG TCO2 17.4 MMOL/L (23-27); Allen Test Positive
[2020-11-15 07:00] LABS: Albumin 1.2 G/DL (3.4-5.0); Bilirubin,Total 10.4 MG/DL (0.2-1.0); Calcium 9.7 MG/DL (8.5-10.1); Potassium 5.7 MMOL/L (3.5-5.1); Total Protein 6.9 G/DL (6.4-8.3)
[2020-11-15] MEDS: CLINDAMYCIN INJ 900 MG in PREMIX 1 EACH IV SCH ×2 (08:49→17:03)
[2020-11-15] MEDS: ALBUMIN 25% 12.5 GM in PREMIX 1 EACH IV SCH (08:49)
[2020-11-15] MEDS: APIXABAN 5 MG TABLET PO SCH (08:49)
[2020-11-15] MEDS: SPIRONOLACTONE 25 MG TABLET PO SCH (08:56)
[2020-11-15] MEDS: METOPROLOL TARTRATE 25 MG TABLET PO SCH (08:56)
[2020-11-15] MEDS: FAMOTIDINE 20 MG/2 ML VIAL IV SCH (08:56)
[2020-11-15] MEDS: predniSONE 5 MG TABLET PO SCH (08:56)
[2020-11-15] MEDS: INSULIN GLARGINE 100 UNIT/ML SUBCUT SCH (08:56)
[2020-11-15] MEDS: FUROSEMIDE 20 MG/2 ML VIAL IV SCH (08:56)
[2020-11-15 08:57] LABS: Basophils # 0.1 10*3/uL (0.0-0.2); Basophils % 0.5 % (0.0-0.8); Eosinophils # 0.2 10*3/uL (0.0-0.87); Eosinophils % 0.8 % (0.00-10.9); Hematocrit 46.2 VOL% (42.0-52.0); Hemoglobin 14.7 GM/DL (14.0-18.0); Immature Granulocytes Absolute 0.43 #; Lymphocytes # 0.5 10*3/uL (1.4-4.0); Lymphocytes % 2.4 % (21.2-54.2); Mean Corpuscular HGB Conc 31.8 GM/DL (32-36); Mean Corpuscular Volume 99.8 FL (87-102); Monocytes % 3.8 % (1.7-12.7); NRBC # 0.12 10*3/uL; Neutrophils % 90.5 % (38.7-73.9); Red Blood Count 4.63 MC/CUMM (3.8-5.5); Red Cell Distribution Width 25.3 % (9.3-17.3); White Blood Count 21.1 T/CUMM (4-12)
[2020-11-15 09:02] LABS: Platelet Count 106 T/CUMM (130-400)
[2020-11-15 09:50] LABS: Band Neutrophils 2 % (0-10); Hypochromasia 1+; Lymphocytes 3 % (20-55); Myelocytes 1 %; Nucleated Red Blood Cells 1 (0-5); Segmented Neutrophils 92 % (50-85); Target Cells Slight; Total Cells Counted 100
[2020-11-15 09:51] LABS: Macrocytosis Slight
[2020-11-15] MEDS ORDERED: SODIUM BICARB INJ 150 MEQ in STERILE WATER INJ 850 ML IV SCH (10:00)
[2020-11-15] MEDS ORDERED: LORazepam 2 MG/1 ML VIAL IV PRN (17:19)
[2020-11-15] MEDS: MORPHINE 4 MG/1 ML VIAL IV PRN (21:53)
[2020-11-16] MEDS: MORPHINE 4 MG/1 ML VIAL IV PRN ×3 (01:05→06:36)
[2020-11-16 12:14] VITALS: BP 84/21
== END 2020-11-16 21:19 | disposition expired | DRG 207 ==
LOC: SUATTDRO 15:32 → N.ICU 15:32 → N.5E 11-09 17:23 → N.ICU 11-14 19:35 → N.3E 11-15 18:04
PROVIDERS: ADMIT Internal Medicine; ATTEND Internal Medicine